=== PATIENT | male | born 1960 | race Asian ===

== ENCOUNTER 2019-12-27 13:02 | Emergency (ER) | payer OTHER ==
[~2019-12-27] VITALS: Ht 175.3 cm; Wt 54.4 kg
[~2019-12-27 13:02] MED LIST: FUROSEMIDE20 M1 ORAL
[2019-12-27 13:05] VITALS: BP 159/109
--- NOTE | 2019-12-27 13:10 | NUR ---
ED Nurse Note: Patient BIBA from home d/t shortness of breath. Per EMS, patient's neighbor called 911 after seeing patient in car trying to catch his breath. Patient was 78% O2 sat in the field on RA. Patient 98% after being placed on non-rebreather at 15L. Patient currently satting 100% on 4L NC. Patient arousable to pain, makes eye contact, but does not speak. Patient on the monitor tech. IV site in right AC 18 g, blood collected and sent to lab.
[2019-12-27 13:32] LABS: BASOPHILS % (AUTO) 0.7 % (0.0-2.0); EOSINOPHILS % (AUTO) 0.6 % (0.0-3.0); HEMATOCRIT 43.1 % (42.0-52.0); HEMOGLOBIN 12.9 G/DL (14.2-18.0); LYMPHOCYTES % (AUTO) 14.3 % (20.0-45.0); MEAN CORPUSCULAR VOLUME 106 FL (80-99); MONOCYTES % (AUTO) 4.8 % (1.0-10.0); NEUTROPHILS % (AUTO) 79.7 % (45.0-75.0); PLATELET COUNT 140 K/UL (150-450); RED BLOOD COUNT 4.09 M/UL (4.70-6.10); RED CELL DISTRIBUTION WIDTH 13.4 % (11.6-14.8)
[2019-12-27 13:48] LABS: BLOOD UREA NITROGEN 12 mg/dL (7-18); CALCIUM 8.7 MG/DL (8.5-10.1); CHLORIDE 94 MMOL/L (98-107); CREATININE 0.6 MG/DL (0.55-1.30); POTASSIUM 3.9 MMOL/L (3.5-5.1); SODIUM 142 MMOL/L (136-145)
[2019-12-27 14:01] LABS: ALANINE AMINOTRANSFERASE 16 U/L (12-78); ALBUMIN 4.4 G/DL (3.4-5.0); ALBUMIN/GLOBULIN RATIO 1.3 (1.0-2.7); ALKALINE PHOSPHATASE 57 U/L (46-116); ASPARTATE AMINO TRANSFERASE 18 U/L (15-37); BILIRUBIN,TOTAL 0.7 MG/DL (0.2-1.0); CREATINE KINASE 42 U/L (26-308)
[2019-12-27 14:12] LABS: CARBON DIOXIDE > 45 MMOL/L (21-32)
--- NOTE | 2019-12-27 14:33 | Emergency Room Report ---
History of Present Illness General Chief Complaint: Upper Respiratory Illness [facility]: [facility] Present Illness HPI This patient is brought in by EMS. EMS report hypoxemia on their arrival with oxygen saturations in the 70s. The oxygen saturation came up into the 90s on a nonrebreather mask. The patient reports a history of COPD. He states he has had a few days of worsening shortness of breath. He denies cough or congestion. He denies chest pain. He denies fever or chills. He denies nausea or vomiting. He states that this feels similar to his previous COPD exacerbations. He has no other complaints. [facility] Allergies: Coded Allergies: UNABLE TO ASSESS (Unverified , 12/27/19) COVID-19 Screening Contact w/high risk pt: No Experienced COVID-19 symptoms?: Yes COVID-19 Testing performed ANNUAL GIVING DIRECTOR: No - UNK [facility] Patient History Past Medical History: see triage record, HTN, COPD Social History: Denies: smoking - Hx of Tobacco use, alcohol use, drug use Reviewed Nursing Documentation: PMH: Agreed; PSxH: Agreed ([facility]) Nursing Documentation-PMH Hx COPD: Yes ([facility]) Review of Systems All Other Systems: negative except mentioned in HPI ([facility]) Physical Exam Vital Signs Date Time Temp Pulse Resp B/P (MAP) Pulse Ox O2 Delivery O2 Flow Rate FiO2 12/27/19 12:46 98.4 90 14 159/109 (126) 98 Non-Rebreather 15.0 Sp02 EP Interpretation: reviewed, abnormal General Appearance: no apparent distress, alert, GCS 15, non-toxic Head: normocephalic, atraumatic Eyes: bilateral eye normal inspection, bilateral eye PERRL ENT: hearing grossly normal, normal pharynx, no angioedema, normal voice Neck: full range of motion, supple/symm/no masses Respiratory: chest non-tender, accessory muscle use, wheezing, expiration Cardiovascular #1: regular rate, rhythm, no edema Gastrointestinal: normal bowel sounds, non tender, soft, non-distended, no guarding, no rebound Rectal: deferred Musculoskeletal: normal inspection, back normal, normal range of motion, non- tender Neurologic: alert, motor strength/tone normal, oriented x3, sensory intact, responsive, speech normal Psychiatric: judgement/insight normal, memory normal, mood/affect normal, no suicidal/homicidal ideation Skin: no rash, normal color (Christa Thakur DO) Procedures Critical Care Time Critical Care Time Critical care is made on this patient due to presentation with shortness of breath and hypoxia with COPD exacerbation requiring my acute intervention. Critical care time is approximately 35 minutes and excludes procedures (Sagar Morrow M.D.) Medical Decision Making Diagnostic Impression: Primary Impression: COPD exacerbation ER Course This patient presented with a severe COPD exacerbation. I initially evaluated this patient. The patient was given albuterol and Atrovent nebulizer treatments in addition to oral prednisone. Patient was maintaining oxygen saturations, although, this patient may need BiPAP if he does not turn around. The patient's rapid COVID-19 test was negative. I was only able to start the care on this patient as this patient was turned over to Dr. Morrow. Chest x- ray was clear. Patient was wheezing on lung exam. Anticipate admission for COPD exacerbation. This patient was evaluated in the context of the global COVID-19 pandemic, which necessitated consideration that the patient might be at risk for infection with the [id number] virus that causes COVID-19. Institutional protocols and algorithms that pertain to the evaluation of patients at risk for COVID-19 and the state of rapid change based on information released by multiple regulatory bodies including the CDC and federal and state organizations. These policies and algorithms were followed during the patient' s care in the ED. Laboratory Tests Test 12/27/19 13:05 White Blood Count 6.0 K/UL (4.8-10.8) Red Blood Count 4.09 M/UL (4.70-6.10) L Hemoglobin 12.9 G/DL (14.2-18.0) L Hematocrit 43.1 % (42.0-52.0) Mean Corpuscular Volume 106 FL (80-99) H Mean Corpuscular Hemoglobin 31.4 PG (27.0-31.0) H Mean Corpuscular Hemoglobin Concent 29.8 G/DL (32.0-36.0) L Red Cell Distribution Width 13.4 % (11.6-14.8) Platelet Count 140 K/UL (150-450) L Mean Platelet Volume 6.3 FL (6.5-10.1) L Neutrophils (%) (Auto) 79.7 % (45.0-75.0) H Lymphocytes (%) (Auto) 14.3 % (20.0-45.0) L Monocytes (%) (Auto) 4.8 % (1.0-10.0) Eosinophils (%) (Auto) 0.6 % (0.0-3.0) Basophils (%) (Auto) 0.7 % (0.0-2.0) Sodium Level 142 MMOL/L (136-145) Potassium Level 3.9 MMOL/L (3.5-5.1) Chloride Level 94 MMOL/L (98-107) L Carbon Dioxide Level > 45 MMOL/L (21-32) *H Blood Urea Nitrogen 12 mg/dL (7-18) Creatinine 0.6 MG/DL (0.55-1.30) Estimated Glomerular Filtration Rate > 60 mL/min (>60) Glucose Level 187 MG/DL (74-106) H Lactic Acid Level 0.80 mmol/L (0.4-2.0) Calcium Level 8.7 MG/DL (8.5-10.1) Total Bilirubin 0.7 MG/DL (0.2-1.0) Aspartate Amino Transferase (AST) 18 U/L (15-37) Alanine Aminotransferase (ALT) 16 U/L (12-78) Alkaline Phosphatase 57 U/L (46-116) Total Creatine Kinase 42 U/L (26-308) Creatine Kinase MB 2.0 NG/ML (0.0-3.6) Creatine Kinase MB Relative Index 4.7 Troponin I 0.000 ng/mL (0.000-0.056) Total Protein 7.8 G/DL (6.4-8.2) Albumin 4.4 G/DL (3.4-5.0) Globulin 3.4 g/dL Albumin/Globulin Ratio 1.3 (1.0-2.7) Microbiology Date/Time Source Procedure Growth Status 12/27/19 13:25 Nasopharynx SARS-CoV-2 RdRp Gene Assay - Final Complete (Christa Thakur DO) ER Course 59-year-old male signed out to me by previous physician for COPD exacerbation. Patient presented from home hypoxic. Patient was reported to me to have wheezing. Rapid COVID test was negative. Patient received breathing treatments but seemed mildly altered so blood gas was ordered and CO2 elevated to 170. At that time positive pressure ventilation was ordered with BiPAP. Even IV steroids. Do suspect COPD exacerbation. Due to insurance patient was requested to be transferred to outside facility, [facility] under Dr. billings. I did explain to Dr. Santiago that patient will require BiPAP during transport which was arranged. Patient transferred to outside facility. (Sagar Morrow M.D.) ER Course Addendum: Blood culture positive I was brought Blood culture results from 12/27/2019. I have reviewed the medical record and patient was transferred to an outside hospital for management of COPD/pneumonia. Preliminary blood culture shows gram-positive rods I did call the demographics contact information but via voice mailbox is full so I was not able to leave a message. We will try x3. (Evelia Ridley D.O.) EKG Diagnostic Results Rate: normal Rhythm: NSR ST Segments: no acute changes (Christa Thakur DO) Rhythm Strip Diag. Results EP Interpretation: yes Rate: 90's Rhythm: NSR, no PVC's, no ectopy (Christa Thakur DO) Chest X-Ray Diagnostic Results Chest X-Ray Diagnostic Results : Chest X-Ray Ordered: Yes # of Views/Limited/Complete: 1 View Indication: Shortness of Breath EP Interpretation: Yes Interpretation: no consolidation, no effusion, no pneumothorax, no acute cardiopulmonary disease, other - Hyperinflation Impression: No acute disease Electronically Signed by: Christa Thakur DO (Christa Thakur DO) Last Vital Signs Date Time Temp Pulse Resp B/P (MAP) Pulse Ox O2 Delivery O2 Flow Rate FiO2 12/27/19 13:05 90 14 Non-Rebreather 15.0 12/27/19 12:46 98.4 159/109 (126) 98 (Christa Thakur DO) Disposition: ADMITTED INPATIENT Condition: Serious Referrals: NOT CHOSEN IPA/,REFERRING (PCP) Christa Thakur DO Dec 27, 2019 14:33 Sagar Morrow M.D. Dec 27, 2019 18:07 Evelia Ridley D.O. Dec 30, 2019 08:51
[2019-12-27] MEDS ORDERED: Ipratropium 0.02% Inh Soln 2.5ml UD HHN ONE (14:45)
[2019-12-27] MEDS ORDERED: Ipratropium 0.02% Inh Soln 2.5ml UD ONE (14:47)
[2019-12-27] MEDS: Albuterol ud Inhalation HHN SCH ×2 (14:56→14:58)
[2019-12-27 15:00] VITALS: BP 154/84
[2019-12-27] MEDS ORDERED: Solu-MEDROL 125mg Inj IVP ONE (15:30)
[2019-12-27 15:44] VITALS: BP 181/110
--- NOTE | 2019-12-27 15:44 | NUR ---
ED Nurse Note: Patient BP 181/110, Dr. Morrow notified.
--- NOTE | 2019-12-27 15:54 | Diagnostic Imaging Report ---
Indication: Shortness of breath Technique: One view of the chest Comparison: none Findings: Lungs are hyperinflated. The heart size is normal. The aorta is tortuous and ectatic Impression: Hyperinflation, likely COPD. No acute process.
[2019-12-27 16:30] VITALS: BP 141/76
--- NOTE | 2019-12-27 16:45 | NUR ---
ED Nurse Note: Patient BP trending down, patient in no acute distress. Hydralazine held
--- NOTE | 2019-12-27 17:30 | NUR ---
ED Nurse Note: Patient tolerating BiPAP well, breathing even and unlabored, no s/s of respiratory distress.
[2019-12-27 18:30] VITALS: BP 121/76
--- NOTE | 2019-12-27 18:30 | NUR ---
ED Nurse Note: Report given to Ashely MCDUFFIE with [facility]. Report given to Abimael MCDUFFIE at [facility], patient accepted at [facility]. Patient VSS.
== END 2019-12-27 18:30 | disposition other institution (70) ==
LOC: EDBD 13:02 → EMR 14:04 → EDBEDREQSVC 16:21 → EMR 18:30
DX: J44.1 Chronic obstructive pulmonary disease with (acute) exacerbation (principal)
CPT/HCPCS: 36415; 36600; 71045; 80053; 82550; 82553; 82803; 83605; 84484; 85025; 87040; 93005; 94640; 96374; J2930; U0002; Z7502; 99291

== ENCOUNTER 2020-02-25 15:46 | Inpatient (IN) | payer OTHER ==
[~2020-02-25] VITALS: Ht 177.8 cm; Wt 57.1 kg
[2020-02-25 15:52] VITALS: BP 153/88
--- NOTE | 2020-02-25 15:52 | NUR ---
ED Nurse Note: Pt arrived to ED with RA 26 from home due to SOB pt has history of COPD. pt is 98% on 3 L nasal cannula. pt desaturated to 89-92% per ems off oxygen.
[2020-02-25 16:28] LABS: BASOPHILS % (AUTO) 0.6 % (0.0-2.0); EOSINOPHILS % (AUTO) 0.9 % (0.0-3.0); HEMATOCRIT 35.9 % (42.0-52.0); HEMOGLOBIN 11.5 G/DL (14.2-18.0); LYMPHOCYTES % (AUTO) 8.9 % (20.0-45.0); MEAN CORPUSCULAR VOLUME 101 FL (80-99); MONOCYTES % (AUTO) 6.7 % (1.0-10.0); NEUTROPHILS % (AUTO) 82.9 % (45.0-75.0); PLATELET COUNT 172 K/UL (150-450); RED BLOOD COUNT 3.56 M/UL (4.70-6.10); RED CELL DISTRIBUTION WIDTH 13.8 % (11.6-14.8); WHITE BLOOD COUNT 8.7 K/UL (4.8-10.8)
[2020-02-25] MEDS ORDERED: Solu-MEDROL 125mg Inj IVP ONE (16:30)
[2020-02-25] MEDS ORDERED: Albuterol/Ipratropium 3ml neb HHN ONE ×2 (16:30→17:15)
--- NOTE | 2020-02-25 16:33 | Diagnostic Imaging Report ---
Indication: Shortness of breath Technique: One view of the chest Comparison: 12/27/2019 Findings: Mild hyperinflation again seen. There is no definite focal airspace consolidation. No pleural effusion or pneumothorax. Heart is enlarged but stable in size compared to the prior exam. Aorta is ectatic and tortuous, also similar compared to the prior exam. Osseous structures demonstrate no acute abnormality. Impression: Nonspecific hyperinflation. Question COPD. No acute infiltrate.
[2020-02-25 16:47] LABS: BLOOD UREA NITROGEN 7 mg/dL (7-18); CALCIUM 9.5 MG/DL (8.5-10.1); CHLORIDE 97 MMOL/L (98-107); CREATININE 0.5 MG/DL (0.55-1.30); POTASSIUM 3.3 MMOL/L (3.5-5.1); SODIUM 142 MMOL/L (136-145)
[2020-02-25] MEDS ORDERED: Solu-MEDROL 125mg Inj ONE (16:51)
--- NOTE | 2020-02-25 16:52 | NUR ---
ED Nurse Note: RT at bedside
[2020-02-25 16:56] LABS: APPEARANCE,URINE CLEAR; BILIRUBIN, URINE NEGATIVE (NEGATIVE); COLOR,URINE YELLOW; GLUCOSE, URINE (UA) NEGATIVE (NEGATIVE); KETONES,URINE NEGATIVE (NEGATIVE); LEUKOCYTE ESTERASE ,URINE 1+ (NEGATIVE); NITRITE,URINE NEGATIVE (NEGATIVE); PH,URINE 8 (4.5-8.0); PROTEIN,URINE 1+ (NEGATIVE); UROBILINOGEN,URINE 1 MG/DL (0.0-1.0)
[2020-02-25 17:01] LABS: ALANINE AMINOTRANSFERASE 19 U/L (12-78); ALBUMIN 3.9 G/DL (3.4-5.0); ALBUMIN/GLOBULIN RATIO 1.2 (1.0-2.7); ALKALINE PHOSPHATASE 55 U/L (46-116); ASPARTATE AMINO TRANSFERASE 21 U/L (15-37); BILIRUBIN,TOTAL 0.7 MG/DL (0.2-1.0); CKMB 2.1 NG/ML (0.0-3.6); CREATINE KINASE 158 U/L (26-308); PHOSPHORUS 3.5 MG/DL (2.5-4.9)
--- NOTE | 2020-02-25 17:14 | NUR ---
ED Nurse Note: Pt denies CP, pt appears to be working harder when breathing. called RT to inform them that another breathing treatment is due
--- NOTE | 2020-02-25 17:15 | Emergency Room Report ---
History of Present Illness General Chief Complaint: Dyspnea/Respdistress Source: Patient, EMS Present Illness HPI Patient is a 59-year-old male who presents after increased difficulty with breathing. Previous history of COPD. Reports having some prior heart condition in the past. Denies any chest discomfort.Patient did have worsening difficulty breathing over the past 1 day. Had previous history of COPD.Patient denies any recent fever. Reportedly had have been having decreased sense of smell and taste. Allergies: Coded Allergies: No Known Allergies (Unverified , 02/25/20) UNABLE TO ASSESS (Unverified , 12/27/19) COVID-19 Screening Contact w/high risk pt: No Experienced COVID-19 symptoms?: Yes COVID-19 Testing performed ALTERATION SPECIALIST: No Patient History Past Medical History: see triage record Reviewed Nursing Documentation: PMH: Agreed; PSxH: Agreed Nursing Documentation-PMH Past Medical History: No History, Except For Hx COPD: Yes Review of Systems All Other Systems: negative except mentioned in HPI Physical Exam Vital Signs Date Time Temp Pulse Resp B/P (MAP) Pulse Ox O2 Delivery O2 Flow Rate FiO2 02/25/20 15:43 98.4 102 20 172/115 (134) 97 Room Air 02/25/20 15:52 3.0 02/25/20 16:47 28 Sp02 EP Interpretation: reviewed, normal General Appearance: normal inspection, well appearing, alert Head: atraumatic ENT: normal ENT inspection, hearing grossly normal, normal voice Neck: normal inspection, full range of motion, supple, no bony tend Respiratory: normal inspection, no retraction, decreased breath sounds, wheezing Cardiovascular #1: regular rate, rhythm, no edema Gastrointestinal: normal inspection, normal bowel sounds, non tender, soft, no guarding, no hernia Genitourinary: no CVA tenderness Musculoskeletal: normal inspection, back normal, normal range of motion Neurologic: alert, motor strength/tone normal, oriented x3, responsive, speech normal, normal inspection Psychiatric: normal inspection, judgement/insight normal, mood/affect normal Skin: no rash, other - Muscle atrophy Medical Decision Making Diagnostic Impression: Primary Impression: COPD exacerbation Additional Impression: CO2 retention ER Course Patient presented for shortness of breath. Differential diagnosis include was not limited to pneumonia, myocardial infarction, coronavirus infection, anemia among others. Because of complexity of patient's case laboratory tests and imaging studies were ordered. EKG interpreted by me showed normal sinus rhythm with a rate of [address] or T wave changes. Patient's coronavirus testing was negative.Patient's laboratory testing was notable for negative troponin.X-ray 1 view read by radiology showed nonspecific hyperinflation without evident infiltrate, see radiology report for full details. Patient initially refused BIPAP. Had some improvement in CO2 after bipap initiated. Repeat CO2 and pH are improved on BiPAP.Dr. Rizwan Patel was contacted for inpatie nt management. Labs Test 02/25/20 15:45 02/25/20 16:45 White Blood Count 8.7 K/UL (4.8-10.8) Red Blood Count 3.56 M/UL (4.70-6.10) Hemoglobin 11.5 G/DL (14.2-18.0) Hematocrit 35.9 % (42.0-52.0) Mean Corpuscular Volume 101 FL (80-99) Mean Corpuscular Hemoglobin 32.3 PG (27.0-31.0) Mean Corpuscular Hemoglobin Concent 32.0 G/DL (32.0-36.0) Red Cell Distribution Width 13.8 % (11.6-14.8) Platelet Count 172 K/UL (150-450) Mean Platelet Volume 6.3 FL (6.5-10.1) Neutrophils (%) (Auto) 82.9 % (45.0-75.0) Lymphocytes (%) (Auto) 8.9 % (20.0-45.0) Monocytes (%) (Auto) 6.7 % (1.0-10.0) Eosinophils (%) (Auto) 0.9 % (0.0-3.0) Basophils (%) (Auto) 0.6 % (0.0-2.0) Prothrombin Time 11.4 SEC (9.30-11.50) Prothromb Time International Ratio 1.0 (0.9-1.1) Activated Partial Thromboplast Time 30 SEC (23-33) Sodium Level 142 MMOL/L (136-145) Potassium Level 3.3 MMOL/L (3.5-5.1) Chloride Level 97 MMOL/L (98-107) Blood Urea Nitrogen 7 mg/dL (7-18) Creatinine 0.5 MG/DL (0.55-1.30) Estimat Glomerular Filtration Rate > 60 mL/min (>60) Glucose Level 139 MG/DL (74-106) Calcium Level 9.5 MG/DL (8.5-10.1) Phosphorus Level 3.5 MG/DL (2.5-4.9) Magnesium Level 1.9 MG/DL (1.8-2.4) Total Bilirubin 0.7 MG/DL (0.2-1.0) Aspartate Amino Transf (AST/SGOT) 21 U/L (15-37) Alanine Aminotransferase (ALT/SGPT) 19 U/L (12-78) Alkaline Phosphatase 55 U/L (46-116) Total Creatine Kinase 158 U/L (26-308) Creatine Kinase MB 2.1 NG/ML (0.0-3.6) Creatine Kinase MB Relative Index 1.3 Troponin I 0.000 ng/mL (0.000-0.056) Pro-B-Type Natriuretic Peptide 109 pg/mL (0-125) Total Protein 7.1 G/DL (6.4-8.2) Albumin 3.9 G/DL (3.4-5.0) Globulin 3.2 g/dL Albumin/Globulin Ratio 1.2 (1.0-2.7) Lipase 77 U/L (73-393) Urine Color Yellow Urine Appearance Clear Urine pH 8 (4.5-8.0) Urine Specific [place] 1.010 (1.005-1.035) Urine Protein 1+ (NEGATIVE) Urine Glucose (UA) Negative (NEGATIVE) Urine Ketones Negative (NEGATIVE) Urine Blood 1+ (NEGATIVE) Urine Nitrite Negative (NEGATIVE) Urine Bilirubin Negative (NEGATIVE) Urine Urobilinogen 1 MG/DL (0.0-1.0) Urine Leukocyte Esterase 1+ (NEGATIVE) EKG Diagnostic Results Rate: normal - 94 Rhythm: NSR - 94 ST Segments: no acute changes Rhythm Strip Diag. Results EP Interpretation: yes Rhythm: NSR, no PVC's, no ectopy Last Vital Signs Date Time Temp Pulse Resp B/P (MAP) Pulse Ox O2 Delivery O2 Flow Rate FiO2 02/25/20 16:47 100 22 100 2.0 28 98 23 100 02/25/20 15:52 Room Air 02/25/20 15:52 98.4 153/88 Status: unchanged Disposition: ADMITTED INPATIENT Condition: Stable Referrals: [facility],REFERRING (PCP) Carrington Kerns MD Feb 25, 2020 17:15
--- NOTE | 2020-02-25 17:18 | NUR ---
ED Nurse Note: RT at bedside placing BiPAP
[2020-02-25 17:21] LABS: CARBON DIOXIDE 44 MMOL/L (21-32)
--- NOTE | 2020-02-25 17:30 | NUR ---
ED Nurse Note: Pt refusing BiPAP, pt states "its too much". ERMD informed; per ermd place pt on nasal cannula and collect abg
--- NOTE | 2020-02-25 17:35 | NUR ---
RESPIRATORY NOTE: placed pt on Bipap. pt refusing. ER MD notified.
[2020-02-25 17:42] VITALS: BP 173/101
--- NOTE | 2020-02-25 17:57 | NUR ---
ED Nurse Note: Pt is restless and appears diaphoretic. pt was attempting to get out of bed, pt was verbally oriented.
[2020-02-25] MEDS ORDERED: Aspirin Baby 81mg ORAL ONE (18:15)
--- NOTE | 2020-02-25 18:55 | NUR ---
ED Nurse Note: ABG collected per RT
--- NOTE | 2020-02-25 19:08 | NUR ---
HAND-OFF: Report given to Scout Orozco.
--- NOTE | 2020-02-25 19:14 | NUR ---
ED Nurse Note: pt received from FROY Torres. 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 safety precautions are in place. will cont to monitor pt
[2020-02-25 19:19] VITALS: BP 153/83
--- NOTE | 2020-02-25 20:08 | NUR ---
ED Nurse Note: pt placed back onto bi-pap machine by RT per ERMD orders. pt tolerating well, not pulling at mask or tubing. pt appears to be asleep but arousable to his name and touch, his responses to questions are delayed but coherent. pt satting at around 95% on bi-pap
--- NOTE | 2020-02-25 21:35 | NUR ---
ED Nurse Note: RT at pt bedside to draw second ABG
--- NOTE | 2020-02-25 22:48 | NUR ---
ED Nurse Note: called to give report but admitting RN and floor supercharger mechanic are unavailable to receive report at this time, asked to call back in 10 minutes
--- NOTE | 2020-02-25 22:56 | NUR ---
ED Nurse Note: report given to FROY Copeland
--- NOTE | 2020-02-25 23:00 | NUR ---
NURSE NOTES: Received patient report from FROY Orozco. Patient arrived from ER without incident. He shows no signs of distress or pain at the time. Patient is AO x3 Mongolian speaking. Patient is on Bi Pap 05/17 on 40 % FIo2. He is saturating at 100%. IV is intact and patent. There are no signs of erythema, infiltration, or bleeding at the time. Belongings checked. Bed is in the lowest position, call light is within reach, side rails up x3. Will continue to monitor.
[2020-02-26] VITALS: BP 134/84
[2020-02-26] MEDS ORDERED: Albuterol/Ipratropium 3ml neb HHN PRN (01:15)
[2020-02-26 04:00] VITALS: BP 114/74
--- NOTE | 2020-02-26 04:33 | NUR ---
NURSE NOTES: Found $674 dollars in patients pants. Also found cigarettes and coil repair technician. Asked patient if he wants us to keep it in safe and he agreed. Will contact Quality Lead Irish and take it down stairs.
--- NOTE | 2020-02-26 06:22 | NUR ---
NURSE NOTES: Pc Technician FROY Coburn and security intelligence analyst came together and counted the money in front of patient. There are 5 x100, 8x 20, 1x 10, and 4x 1 dollar bills. Patient also had a box of cigarettes with 4 cigarettes in it and a blue shirt trimmer. Receipt stayed with patient and pink copy in patients chart. Belongings went to safe.
--- NOTE | 2020-02-26 07:09 | NUR ---
NURSE HAND-OFF REPORT: Important Events on Shift:[Patent money sent to safe] Patient Status: [Full code] Diet: [Regular] Pending Orders: [NA] Pending Results/Labs:[NA] Pending MD notification:[NA] Latest Vital Signs: Temperature 96.8 , Pulse 75 , B/P 114 /74 , Respiratory Rate 20 , O2 SAT 99 , Bi-pap, O2 Flow Rate 10.0 . Vital Sign Comment: [NA] EKG Rhythm: Sinus Rhythm Rhythm change?: N MD Notified?: - MD Response: Latest [place] Fall Score: 70 Fall Risk: High Risk Safety Measures: Call light Within Reach, Bed Alarm Zone 2, Side Rails Side Rails x2, Bed position Low and Locked. Fall Precautions: Yellow Socks Patient Fall Education Report given to [FROY Moore and FROY Hay].
--- NOTE | 2020-02-26 07:27 | NUR ---
NURSE NOTES: Pt is on bed comfortable, on Bipap with setting 40% FiO2, 12/5. No grimacing noted. IV on L wrist G18 SL. Bed on low position, bed alarm on, call light within reach, Will continue to monitor pt.
[2020-02-26 08:00] VITALS: BP 144/98
--- NOTE | 2020-02-26 08:42 | Cardiac Electrophysiology PN ---
Subjective Subjective [id number] Objective Last 24 Hour Vital Signs Date Time Temp Pulse Resp B/P (MAP) Pulse Ox O2 Delivery O2 Flow Rate FiO2 02/26/20 07:20 85 19 100 30 02/26/20 04:00 Bi-pap 02/26/20 04:00 75 02/26/20 04:00 40 02/26/20 04:00 96.8 74 20 114/74 (87) 99 02/26/20 03:14 73 22 98 40 02/26/20 00:00 Bi-pap 02/26/20 00:00 40 02/26/20 00:00 78 02/26/20 00:00 98.1 75 22 134/84 (101) 100 02/25/20 23:46 79 17 98 40 02/25/20 23:12 Bi-Pap 02/25/20 23:08 98.5 83 10 143/80 95 Bi-pap 10.0 30 02/25/20 21:17 3.0 30 02/25/20 20:13 100 10 95 Bi-pap 02/25/20 19:54 103 17 99 Nasal Cannula 3.0 30 02/25/20 19:19 100 23 153/83 100 Nasal Cannula 3.0 02/25/20 17:42 98.1 110 23 173/101 100 Nasal Cannula 3.0 32 02/25/20 17:33 109 20 100 Nasal Cannula 3.0 32 99 20 97 02/25/20 17:18 40 02/25/20 16:47 100 22 100 2.0 28 98 23 100 02/25/20 15:52 102 20 Room Air 02/25/20 15:52 98.4 89 20 153/88 98 Nasal Cannula 3.0 02/25/20 15:43 98.4 102 20 172/115 (134) 97 Room Air Intake and Output 02/25/20 02/26/20 19:00 07:00 Output Total 0 ml 1200 ml Balance 0 ml -1200 ml Output Urine Total 0 ml 1200 ml Laboratory Tests Test 02/25/20 15:45 02/25/20 16:45 02/25/20 18:51 02/25/20 21:28 White Blood Count 8.7 K/UL (4.8-10.8) Red Blood Count 3.56 M/UL (4.70-6.10) L Hemoglobin 11.5 G/DL (14.2-18.0) L Hematocrit 35.9 % (42.0-52.0) L Mean Corpuscular Volume 101 FL (80-99) H Mean Corpuscular Hemoglobin 32.3 PG (27.0-31.0) H Mean Corpuscular Hemoglobin Concent 32.0 G/DL (32.0-36.0) Red Cell Distribution Width 13.8 % (11.6-14.8) Platelet Count 172 K/UL (150-450) Mean Platelet Volume 6.3 FL (6.5-10.1) L Neutrophils (%) (Auto) 82.9 % (45.0-75.0) H Lymphocytes (%) (Auto) 8.9 % (20.0-45.0) L Monocytes (%) (Auto) 6.7 % (1.0-10.0) Eosinophils (%) (Auto) 0.9 % (0.0-3.0) Basophils (%) (Auto) 0.6 % (0.0-2.0) Prothrombin Time 11.4 SEC (9.30-11.50) Prothromb Time International Ratio 1.0 (0.9-1.1) Activated Partial Thromboplast Time 30 SEC (23-33) Sodium Level 142 MMOL/L (136-145) Potassium Level 3.3 MMOL/L (3.5-5.1) L Chloride Level 97 MMOL/L (98-107) L Carbon Dioxide Level 44 MMOL/L (21-32) *H Blood Urea Nitrogen 7 mg/dL (7-18) Creatinine 0.5 MG/DL (0.55-1.30) L Estimat Glomerular Filtration Rate > 60 mL/min (>60) Glucose Level 139 MG/DL (74-106) H Lactic Acid Level 1.00 mmol/L (0.4-2.0) Calcium Level 9.5 MG/DL (8.5-10.1) Phosphorus Level 3.5 MG/DL (2.5-4.9) Magnesium Level 1.9 MG/DL (1.8-2.4) Total Bilirubin 0.7 MG/DL (0.2-1.0) Aspartate Amino Transf (AST/SGOT) 21 U/L (15-37) Alanine Aminotransferase (ALT/SGPT) 19 U/L (12-78) Alkaline Phosphatase 55 U/L (46-116) Total Creatine Kinase 158 U/L (26-308) Creatine Kinase MB 2.1 NG/ML (0.0-3.6) Creatine Kinase MB Relative Index 1.3 Troponin I 0.000 ng/mL (0.000-0.056) Pro-B-Type Natriuretic Peptide 109 pg/mL (0-125) Total Protein 7.1 G/DL (6.4-8.2) Albumin 3.9 G/DL (3.4-5.0) Globulin 3.2 g/dL Albumin/Globulin Ratio 1.2 (1.0-2.7) Lipase 77 U/L (73-393) Urine Color Yellow Urine Appearance Clear Urine pH 8 (4.5-8.0) Urine Specific [place] 1.010 (1.005-1.035) Urine Protein 1+ (NEGATIVE) H Urine Glucose (UA) Negative (NEGATIVE) Urine Ketones Negative (NEGATIVE) Urine Blood 1+ (NEGATIVE) H Urine Nitrite Negative (NEGATIVE) Urine Bilirubin Negative (NEGATIVE) Urine Urobilinogen 1 MG/DL (0.0-1.0) H Urine Leukocyte Esterase 1+ (NEGATIVE) H Urine RBC 2-4 /HPF (0 - 0) H Urine WBC 2-4 /HPF (0 - 0) Urine Squamous Epithelial Cells Occasional /LPF Urine Amorphous Sediment Few /LPF (NONE) H Urine Bacteria Few /HPF (NONE) Arterial Blood pH 7.187 (7.350-7.450) 7.333 (7.350-7.450) Arterial Blood Partial Pressure CO2 125.1 mmHg (35.0-45.0) *H 88.7 mmHg (35.0-45.0) *H Arterial Blood Partial Pressure O2 68.3 mmHg (75.0-100.0) L 51.8 mmHg (75.0-100.0) L Arterial Blood HCO3 46.4 mmol/L (22.0-26.0) *H 46.0 mmol/L (22.0-26.0) *H Arterial Blood Oxygen Saturation 88.3 % (95-100) *L 86.2 % (95-100) *L Arterial Blood Base Excess 13.3 (-2-2) *H 16.3 (-2-2) *H Onofre Test Positive Positive Microbiology Date/Time Source Procedure Growth Status 02/25/20 15:45 Nasopharynx SARS-CoV-2 RdRp Gene Assay - Final Complete Monster Mcknight MD Feb 26, 2020 08:42
[2020-02-26] MEDS: Solu-MEDROL 125mg Inj IVP SCH (09:52)
[2020-02-26] MEDS: cefTRIAXone 1 GM in D5W 55 ML IVPB SCH (09:52)
[2020-02-26] MEDS: Aspirin Baby 81mg ORAL SCH (09:53)
[2020-02-26 12:00] VITALS: BP 146/89
--- NOTE | 2020-02-26 12:30 | NUR ---
NURSE NOTES: Pt tried to eat but O2 sat dropped to 91%. VS remained stable.
--- NOTE | 2020-02-26 13:56 | Cardiology Report ---
APPROVED REPORT EXAM: Two-dimensional and M-mode echocardiogram with Doppler and color Doppler. INDICATION S.O.B M-Mode DIMENSIONS IVSd1.3 (0.7-1.1cm)Left Atrium (MM)1.4 (1.6-4.0cm) LVDd4.3 (3.5-5.6cm)Aortic Root4.6 (2.0-3.7cm) PWd0.9 (0.7-1.1cm)Aortic Cusp Exc.3.0 (1.5-2.0cm) IVSs1.4 cm LVDs3.1 (2.5-4.0cm) PWs1.2 cm <Conclusion> Technically difficult study due to poor acoustical windows,all images obtained from subcostal. Normal left ventricular chamber size, systolic function and wall motion. Left ventricular ejection fraction estimated to be 55-60 %. No evidence of left ventricular hypertrophy. No evidence of pericardial fat or effusion. RV APPEARS ENLARGED All other cardiac chamber sizes are within normal limits. Calcification of aortic valve with adequate cusp excursion, aortic root dialation. Thickened mitral valve leaflets with normal excursion. Mitral annulus and aortic root calcification. Pulmonic valve not well visualized. Normal tricuspid valve structure. IVC dilated at 2.3 cm without physiologic collapse suggestive of increased RA pressure,RAP estimated 20mmHg. A color flow and spectral Doppler study was performed and revealed: Mild aortic insufficiency. Mild mitral regurgitation. Mitral diastolic velocities suggest reduced left ventricular relaxation c/w mild LV diastolic dysfunction (Grade I ). Moderate tricuspid regurgitation. Tricuspid systolic velocities suggests peak right ventricular systolic pressure of 63 mmHg, consistent with severe pulmonary hypertension. Trace pulmonic regurgitation .
--- NOTE | 2020-02-26 14:19 | Cardiology Report ---
APPROVED REPORT EKG Measurement Heart [id number] <Conclusion> Normal sinus rhythm Minimal voltage criteria for LVH, may be normal variant Borderline ECG
--- NOTE | 2020-02-26 15:44 | Consultation ---
DATE OF CONSULTATION: 02/26/2020 CARDIOLOGY CONSULTATION CONSULTING PHYSICIAN: Monster Mcknight MD REFERRING PHYSICIAN: Abimael Patel MD REASON FOR CONSULTATION: Shortness of breath. HISTORY OF PRESENT ILLNESS: The patient is a 59-year-old gentleman with history of hypertension, COPD, and some sort of heart condition in the past that he cannot give the details of which, presented to the emergency room for increasing shortness of breath for one day. The patient was also felt to have decreased sense of smelling and taste. The patient was admitted and a Cardiology consultation was requested for further evaluation and management. REVIEW OF SYSTEMS: Negative other than what is mentioned in the history of present illness. PAST MEDICAL HISTORY: As mentioned above. FAMILY HISTORY: Noncontributory. SOCIAL HISTORY: He lives at home. Does not smoke or drink alcohol. PHYSICAL EXAMINATION: VITAL SIGNS: Blood pressure of 114/74, pulse 75, respirations 18, and temperature 96.8. HEAD AND NECK: Shows no JVD. LUNGS: Coarse rhonchi. CARDIOVASCULAR: Regular S1 and S2 with no gallop or murmur. ABDOMEN: Soft. EXTREMITIES: No pitting edema. LABORATORY AND DIAGNOSTIC DATA: His labs show white count 8.7, hemoglobin 11.5, hematocrit 36, and platelet count is 172,000. Sodium 142, potassium 3.3, BUN of 7, creatinine 0.5, glucose of 139. Troponin is negative. EKG shows sinus rhythm with LVH criteria and nonspecific ST-T wave abnormality. ASSESSMENT AND PLAN: 1. Shortness of breath, likely due to the patient's severe COPD as bicarb is 44. First troponin is negative. EKG is nonischemic. I will get an echocardiogram and completely rule out NH protocol. 2. Shortness of breath due to COPD. He is on Solu-Medrol, ceftriaxone, and albuterol. The patient is also on Lasix 20 mg IV b.i.d. We will wait for result of the echocardiogram. 3. Carbon dioxide of 44. The patient is on BiPAP. Thank you very much for allowing me to participate in the care of this patient. Please do not hesitate to contact me for any questions regarding my evaluation. Monster Mcknight M.D. DR: Lillie JOB#: [id number] CC:
[2020-02-26 16:00] VITALS: BP 138/85
--- NOTE | 2020-02-26 16:29 | History and Physical Report ---
DATE OF ADMISSION: 02/25/2020 HISTORY OF PRESENT ILLNESS: This is a 59-year-old male who came to the emergency room with shortness of breath for one day prior to admission. The patient was found to also have CHF and COPD exacerbation. The patient has generalized weakness and placed on BiPAP. The patient is currently more awake and alert. He was added on aspirin, Lasix, and Solu-Medrol. Cardiology consult was obtained and I have seen the patient. The patient is currently alert and oriented x3. The patient also had ABG, which showed severe metabolic acidosis and now is improving. PAST MEDICAL HISTORY: Significant for COPD and history of CHF. MEDICATIONS: He is taking Lasix, but does not remember the dose. ALLERGIES: No known allergies. FAMILY HISTORY: Noncontributory. PHYSICAL EXAMINATION: GENERAL: This is an elderly white male, currently in the bed, on BiPAP, comfortable. VITAL SIGNS: Blood pressure is 114/74, pulse 75, saturation 99% on BiPAP, and temperature 96.8. HEENT: NAD. CHEST: Bilaterally scattered crackles. CARDIOVASCULAR: Regular rhythm. No gallop. No murmur. ABDOMEN: Soft. Positive bowel sounds. Nontender. EXTREMITIES: No edema. GENITOURINARY: Deferred. LABORATORY AND DIAGNOSTIC DATA: White count 8.7, hemoglobin 12, hematocrit 35, and platelets are 101,000. Chemistry, sodium 144, potassium 3.3, chloride is , BUN 7, creatinine 0.5, glucose 139. Lactic acid is 1. Troponins are negative. EKG is nonspecific T-wave changes. His microbiology reports are pending. Chest x-ray is showing nonspecific hyperinflation with questionable COPD; no acute infiltrate. ASSESSMENT: 1. Acute COPD exacerbation. 2. History of CHF. 3. Hypertension. 4. Weakness. 5. Metabolic encephalopathy secondary to COPD. PLAN: The patient is on BiPAP. Continue Solu-Medrol, aspirin, and Lasix. Continue ceftriaxone and bronchodilator treatments. Consider Pulmonary and Cardiology consult. Discussed with charge nurse. Rizwan Patel M.D. DR: Jorge JOB#: [id number] CC:
--- NOTE | 2020-02-26 19:08 | NUR ---
NURSE HAND-OFF REPORT: Important Events on Shift: none Patient Status: stable Diet: regular Pending Orders: Bipap prn & hs Pending Results/Labs:[] Pending MD notification:[] Latest Vital Signs: Temperature 97.9 , Pulse 60 , B/P 138 /85 , Respiratory Rate 20 , O2 SAT 94 , Bi-pap, O2 Flow Rate 10.0 . Vital Sign Comment: stable EKG Rhythm: Sinus Rhythm Rhythm change?: N MD Notified?: - MD Response: Latest Ragsdale Fall Score: 70 Fall Risk: High Risk Safety Measures: Call light Within Reach, Bed Alarm Zone 1, Side Rails Side Rails x2, Bed position Low and Locked. Fall Precautions: Yellow Socks Patient Fall Education Report given to FROY Belcher.
--- NOTE | 2020-02-26 19:10 | NUR ---
NURSE NOTES: Received pt's report from FROY Hay. Pt is on bed. A/O x4, Romansh speaker.IV site clean and intact noted. Pt is on O2 3L via NC. No s/s of respiratory distress noted. SpO2 97%, HR 95 at this moment. Urinal, call-light within reach. Bed is low and locked. Will continue to monitor with plan of care.
--- NOTE | 2020-02-26 19:54 | NUR ---
NURSE NOTES: Called Dr. Patel and left a message regarding pt's complaint of occasional headache on his occipital area and symptom of coughing.
[2020-02-26 20:00] VITALS: BP 130/90
--- NOTE | 2020-02-26 21:00 | NUR ---
NURSE NOTES: Pt has hyperpigmented skin area on his body. Pt states that pt used to have skin disease, they come from it. they are not new.
--- NOTE | 2020-02-26 23:50 | NUR ---
NURSE NOTES: RT tried to put BIPAP per order, pt refused. Pt is with 3L NC. SpO2 97%.
[2020-02-27] VITALS: BP 115/73
--- NOTE | 2020-02-27 01:38 | NUR ---
NURSE NOTES: Pt is O2 2L via NC. SpO2 97%, stable.
[2020-02-27 04:00] VITALS: BP 137/89
--- NOTE | 2020-02-27 04:00 | NUR ---
NURSE NOTES: Pt was able to walk to the bathroom to make a bowel movement with a little it administrative assistant.
--- NOTE | 2020-02-27 04:00 | NUR ---
NURSE NOTES: Pt stated that Pt fell many times before admission, smoke 1 pack a day for 40 years.
[2020-02-27 05:51] LABS: BASOPHILS % (AUTO) 0.2 % (0.0-2.0); EOSINOPHILS % (AUTO) 0.2 % (0.0-3.0); HEMATOCRIT 36.9 % (42.0-52.0); HEMOGLOBIN 11.9 G/DL (14.2-18.0); LYMPHOCYTES % (AUTO) 10.4 % (20.0-45.0); MEAN CORPUSCULAR VOLUME 98 FL (80-99); MONOCYTES % (AUTO) 8.8 % (1.0-10.0); NEUTROPHILS % (AUTO) 80.4 % (45.0-75.0); PLATELET COUNT 210 K/UL (150-450); RED BLOOD COUNT 3.78 M/UL (4.70-6.10); RED CELL DISTRIBUTION WIDTH 13.1 % (11.6-14.8); WHITE BLOOD COUNT 9.8 K/UL (4.8-10.8)
[2020-02-27 06:16] LABS: ANION GAP 0 mmol/L (5-15); BLOOD UREA NITROGEN 17 mg/dL (7-18); CALCIUM 8.9 MG/DL (8.5-10.1); CHLORIDE 100 MMOL/L (98-107); CREATININE 0.5 MG/DL (0.55-1.30); POTASSIUM 3.6 MMOL/L (3.5-5.1); SODIUM 145 MMOL/L (136-145)
[2020-02-27 06:28] LABS: CARBON DIOXIDE 45 MMOL/L (21-32)
--- NOTE | 2020-02-27 07:30 | NUR ---
NURSE HAND-OFF REPORT: Important Events on Shift:N/A Patient Status: Stable Diet: Regular diet Pending Orders: N/A Pending Results/Labs:N/A Pending MD notification:N/A Latest Vital Signs: Temperature 97.7 , Pulse 80 , B/P 137 /89 , Respiratory Rate 20 , O2 SAT 97 , Nasal Cannula, O2 Flow Rate 2.0 . Vital Sign Comment: Stable EKG Rhythm: Sinus Rhythm Rhythm change?: N MD Notified?: Ginger PALOMINO. Jorge REDDING Response: Latest Ragsdale Fall Score: 70 Fall Risk: High Risk Safety Measures: Call light Within Reach, Bed Alarm Zone 1, Side Rails Side Rails x2, Bed position Low and Locked. Fall Precautions: Yellow Socks Patient Fall Education Report given to FROY Barker.
--- NOTE | 2020-02-27 07:40 | NUR ---
NURSE NOTES: Received resident from FROY Belcher under the care of Dr. Patel. CHARLIE, full code. patient Alert and oriented x4, verbally responsive with clear speech in kinyarwanda. O2 via NC @ 2lpm. Regular diet. No complain of pain or discomfort at this time. Will continue to monitor.
[2020-02-27 08:00] VITALS: BP 134/93
[2020-02-27] MEDS: Aspirin Baby 81mg ORAL SCH (09:20)
[2020-02-27] MEDS: Solu-MEDROL 125mg Inj IVP SCH (09:21)
[2020-02-27] MEDS: cefTRIAXone 1 GM in D5W 55 ML IVPB SCH (09:35)
[2020-02-27 12:00] VITALS: BP 142/87
--- NOTE | 2020-02-27 12:30 | NUR ---
NURSE NOTES: Patient finished lunch and was able to consume 95% of plate. Noted drinking water from bedside pitcher, hydrating well. Patient able to verbalize needs. Will continue current plan of care.
--- NOTE | 2020-02-27 14:49 | NUR ---
NURSE NOTES: Dr. Patel came to see the patient, and decided o downgrade patient to TELE unit. Nurse baggage agent supervisor and charge nurse made aware. Awaiting bed in TELE unit. Will continue to monitor.
--- NOTE | 2020-02-27 14:54 | General Progress Note ---
Assessment/Plan Status: doing well, progressing Assessment/Plan: pt is doing ok cont steroids, iv abx, pt/ot transfer to tele charge nurse Subjective Allergies: Coded Allergies: No Known Allergies (Unverified , 02/25/20) UNABLE TO ASSESS (Unverified , 12/27/19) Subjective doing ok no sob offf bipap Objective Last 24 Hour Vital Signs Date Time Temp Pulse Resp B/P (MAP) Pulse Ox O2 Delivery O2 Flow Rate FiO2 02/27/20 12:00 Nasal Cannula 2.0 02/27/20 12:00 92 02/27/20 12:00 97.7 93 21 142/87 (105) 100 02/27/20 12:00 2.0 02/27/20 08:00 Nasal Cannula 2.0 02/27/20 08:00 90 02/27/20 08:00 2.0 02/27/20 08:00 97.5 89 20 134/93 (107) 100 02/27/20 04:00 97.7 80 20 137/89 (105) 97 02/27/20 04:00 Nasal Cannula 2.0 02/27/20 04:00 2.0 02/27/20 03:27 82 02/27/20 00:00 Nasal Cannula 2.0 02/27/20 00:00 96.6 88 22 115/73 (87) 97 02/27/20 00:00 2.0 02/26/20 23:35 93 02/26/20 20:00 3.0 02/26/20 20:00 97.9 89 20 130/90 (103) 97 02/26/20 20:00 Nasal Cannula 3.0 02/26/20 19:31 88 02/26/20 16:15 60 02/26/20 16:00 Bi-pap 02/26/20 16:00 97.9 99 20 138/85 (102) 94 02/26/20 16:00 40 02/26/20 14:53 98 18 95 30 Intake and Output 02/26/20 02/27/20 19:00 07:00 Intake Total 420 ml 500 ml Output Total 1075 ml 1800 ml Balance -655 ml -1300 ml Intake Oral 420 ml 500 ml Output Urine Total 1075 ml 1800 ml # Bowel Movements 2 Laboratory Tests 02/27/20 04:20: White Blood Count 9.8, Red Blood Count 3.78L, Hemoglobin 11.9L, Hematocrit 36.9L , Mean Corpuscular Volume 98, Mean Corpuscular Hemoglobin 31.4H, Mean Corpuscular Hemoglobin Concent 32.2, Red Cell Distribution Width 13.1, Platelet Count 210, Mean Platelet Volume 5.2L, Neutrophils (%) (Auto) 80.4H, Lymphocytes (%) (Auto) 10.4L, Monocytes (%) (Auto) 8.8, Eosinophils (%) (Auto) 0.2, Basophi ls (%) (Auto) 0.2, Sodium Level 145, Potassium Level 3.6, Chloride Level 100, Carbon Dioxide Level 45*H, Anion Gap 0L, Blood Urea Nitrogen 17, Creatinine 0.5L , Estimat Glomerular Filtration Rate > 60, Glucose Level 97, Calcium Level 8.9, Troponin I 0.000, Pro-B-Type Natriuretic Peptide 135H, Thyroid Stimulating Hormone (TSH) 0.143L Height (Feet): 5 Height (Inches): 10.00 Weight (Pounds): 160 EENT: PERRL/EOMI Neck: supple Cardiovascular: regular rhythm Respiratory/Chest: rhonchi - bilaterally Abdomen: soft, no mass Extremities: non-tender Neurologic: career technical supervisor II-XII grossly normal Skin: warm/dry Abimael Patel MD Feb 27, 2020 14:54
--- NOTE | 2020-02-27 15:34 | NUR ---
CASE MANAGEMENT: REVIEW SI: ENCEPHALOPATHY . CHF . COPD EXACERBATION T 96.6 HR 88 RR 22 BP 115/73 SAT 97% NC/2L H/H 11.9/36.9 K+ 3.3 CARBON DIOXIDE 45 IS: SOLU MEDROL IV QD CEFTRIAXONE IV Q24HR OFF BIPAP TRANSFER TO TELEMETRY ORDER TODAY STEP DOWN UNIT STATUS DCP: PATIENT IS FROM HOME
[2020-02-27 16:00] VITALS: BP 152/91
--- NOTE | 2020-02-27 16:27 | Cardiology Report ---
APPROVED REPORT EKG Measurement Heart [id number] <Conclusion> Sinus rhythm with 1st degree AV block Otherwise normal ECG
[2020-02-27] MEDS ORDERED: LORATADINE10 M2 PO (16:40)
--- NOTE | 2020-02-27 16:42 | Cardiology Progress Note ---
Assessment/Plan Status: stable Assessment/Plan ASSESSMENT AND PLAN: 1. Shortness of breath, likely due to the patient's severe COPD as bicarb is 44. First troponin is negative. EKG is nonischemic. I will get an echocardiogram and completely rule out [place] protocol. 2. Shortness of breath due to COPD. He is on Solu-Medrol, ceftriaxone, and albuterol. The patient is also on Lasix 20 mg IV b.i.d. We will wait for result of the echocardiogram. 3. Carbon dioxide of 44. The patient is on BiPAP. Normal left ventricular chamber size, systolic function and wall motion. Left ventricular ejection fraction estimated to be 55-60 %. No evidence of left ventricular hypertrophy. No evidence of pericardial fat or effusion. RV APPEARS ENLARGED All other cardiac chamber sizes are within normal limits. Calcification of aortic valve with adequate cusp excursion, aortic root dialation. Thickened mitral valve leaflets with normal excursion. Mitral annulus and aortic root calcification. Pulmonic valve not well visualized. Normal tricuspid valve structure. IVC dilated at 2.3 cm without physiologic collapse suggestive of increased RA pressure,RAP estimated 20mmHg. A color flow and spectral Doppler study was performed and revealed: Mild aortic insufficiency. Mild mitral regurgitation. Mitral diastolic velocities suggest reduced left ventricular relaxation c/w mild LV diastolic dysfunction (Grade I ). Moderate tricuspid regurgitation. Tricuspid systolic velocities suggests peak right ventricular systolic pressure of 63 mmHg, consistent with severe pulmonary hypertension. Trace pulmonic regurgitation . Subjective Cardiovascular: Reports: no symptoms Respiratory: Reports: no symptoms Gastrointestinal/Abdominal: Reports: no symptoms Genitourinary: Reports: no symptoms Subjective COVERAGE FOR [facility] Objective Last 24 Hour Vital Signs Date Time Temp Pulse Resp B/P (MAP) Pulse Ox O2 Delivery O2 Flow Rate FiO2 02/27/20 16:00 Nasal Cannula 2.0 02/27/20 16:00 2.0 02/27/20 12:00 Nasal Cannula 2.0 02/27/20 12:00 92 02/27/20 12:00 97.7 93 21 142/87 (105) 100 02/27/20 12:00 2.0 02/27/20 08:00 Nasal Cannula 2.0 02/27/20 08:00 90 02/27/20 08:00 2.0 02/27/20 08:00 97.5 89 20 134/93 (107) 100 02/27/20 04:00 97.7 80 20 137/89 (105) 97 02/27/20 04:00 Nasal Cannula 2.0 02/27/20 04:00 2.0 02/27/20 03:27 82 02/27/20 00:00 Nasal Cannula 2.0 02/27/20 00:00 96.6 88 22 115/73 (87) 97 02/27/20 00:00 2.0 02/26/20 23:35 93 02/26/20 20:00 3.0 02/26/20 20:00 97.9 89 20 130/90 (103) 97 02/26/20 20:00 Nasal Cannula 3.0 02/26/20 19:31 88 General Appearance: no apparent distress, alert EENT: PERRL/EOMI Neck: normal alignment, supple Rhythm: NSR Cardiovascular: normal rate, regular rhythm Respiratory/Chest: chest wall non-tender, lungs clear, normal breath sounds Abdomen: normal bowel sounds, non tender, no organomegaly Extremities: normal range of motion, non-tender, no calf tenderness Neurologic: patient access registrar II-XII grossly normal, no motor/sensory deficits Intake and Output 02/26/20 02/27/20 19:00 07:00 Intake Total 420 ml 500 ml Output Total 1075 ml 1800 ml Balance -655 ml -1300 ml Intake Oral 420 ml 500 ml Output Urine Total 1075 ml 1800 ml # Bowel Movements 2 Laboratory Tests Test 02/27/20 04:20 White Blood Count 9.8 K/UL (4.8-10.8) Red Blood Count 3.78 M/UL (4.70-6.10) L Hemoglobin 11.9 G/DL (14.2-18.0) L Hematocrit 36.9 % (42.0-52.0) L Mean Corpuscular Volume 98 FL (80-99) Mean Corpuscular Hemoglobin 31.4 PG (27.0-31.0) H Mean Corpuscular Hemoglobin Concent 32.2 G/DL (32.0-36.0) Red Cell Distribution Width 13.1 % (11.6-14.8) Platelet Count 210 K/UL (150-450) Mean Platelet Volume 5.2 FL (6.5-10.1) L Neutrophils (%) (Auto) 80.4 % (45.0-75.0) H Lymphocytes (%) (Auto) 10.4 % (20.0-45.0) L Monocytes (%) (Auto) 8.8 % (1.0-10.0) Eosinophils (%) (Auto) 0.2 % (0.0-3.0) Basophils (%) (Auto) 0.2 % (0.0-2.0) Sodium Level 145 MMOL/L (136-145) Potassium Level 3.6 MMOL/L (3.5-5.1) Chloride Level 100 MMOL/L (98-107) Carbon Dioxide Level 45 MMOL/L (21-32) *H Anion Gap 0 mmol/L (5-15) L Blood Urea Nitrogen 17 mg/dL (7-18) Creatinine 0.5 MG/DL (0.55-1.30) L Estimat Glomerular Filtration Rate > 60 mL/min (>60) Glucose Level 97 MG/DL (74-106) Calcium Level 8.9 MG/DL (8.5-10.1) Troponin I 0.000 ng/mL (0.000-0.056) Pro-B-Type Natriuretic Peptide 135 pg/mL (0-125) H Thyroid Stimulating Hormone (TSH) 0.143 uiU/mL (0.358-3.740) Microbiology Date/Time Source Procedure Growth Status 02/25/20 16:00 Blood Blood Culture - Preliminary NO GROWTH AFTER 24 HOURS Resulted 02/25/20 15:45 Nasopharynx SARS-CoV-2 RdRp Gene Assay - Final Complete 02/25/20 15:45 Blood Blood Culture - Preliminary NO GROWTH AFTER 24 HOURS Resulted Matthieu Chou MD Feb 27, 2020 16:42
[2020-02-27] MEDS ORDERED: ATORVASTATIN CA40 MG ORAL (16:43)
[2020-02-27] MEDS ORDERED: COREG3.125 MG ORAL (16:45)
[2020-02-27] MEDS ORDERED: LOSARTAN POTASS50 MG ORAL (16:47)
[2020-02-27] MEDS ORDERED: PROAIR HFA8.5 GM INH (16:49)
[2020-02-27] MEDS ORDERED: WIXELA 250-501 EACH IH (16:52)
[2020-02-27] MEDS ORDERED: SPIRIVA18 MCG INH (16:53)
[2020-02-27] MEDS ORDERED: FUROSEMIDE20 M1 ORAL (16:54)
--- NOTE | 2020-02-27 18:00 | NUR ---
NURSE NOTES: Transfered patient via bed on stable condition to TELEMETRY unit, room 203-1. Report given to FROY Maki staff of TELE unit. Belongings endorsed and signed.
[2020-02-27] MEDS ORDERED: NS 275ml ONE (18:50)
[2020-02-27] MEDS ORDERED: D5W 275ml ONE (18:50)
[2020-02-27] MEDS ORDERED: Tubing IV Secondary IV ONE (18:50)
--- NOTE | 2020-02-27 19:23 | NUR ---
NURSE HAND-OFF REPORT: Important Events on Shift: Pt was recently transferred to . Endorsed to FROY Lara to double check the skin. Per initial assessment, pt only has hyperpigmentation/discoloration/healing wounds from falls. Patient Status: stable Diet: reg Pending Orders: Pending Results/Labs: Pending MD notification: Latest Vital Signs: Temperature 97.7 , Pulse 93 , B/P 152 /91 , Respiratory Rate 20 , O2 SAT 97 , Nasal Cannula, O2 Flow Rate 2.0 . Vital Sign Comment: EKG Rhythm: Sinus Rhythm Rhythm change?: N Notified?: Ginger PALOMINO. Jorge REDDING Response: Latest Ragsdale Fall Score: 70 Fall Risk: High Risk Safety Measures: Call light Within Reach, Bed Alarm Zone 1, Side Rails Side Rails x2, Bed position Low and Locked. Fall Precautions: Yellow Socks Patient Fall Education Report given to FROY Lara
--- NOTE | 2020-02-27 19:24 | NUR ---
NURSE NOTES: Received hand-off report from Shanthi Holt RN. Patient in semi-shane's position, alert and orientedx4, stable condition, breathing unlabored and even, on nasal cannula oxygen 2L, placed call light within reach and instructed to call if needs to get up, bed alarm activated, bed in lowest and locked position, manager monitoring in place, IV 18g site on left hand is intact, no leaking, no redness, no infiltration, no tenderness / pain.
[2020-02-27 20:00] VITALS: BP 133/86
--- NOTE | 2020-02-27 20:24 | NUR ---
NURSE NOTES: Notified Dr. Patel regarding potassium level of 3.6 prior to giving furosemide. Dr. Patel states there is no need for a potassium supplement at this time.
[2020-02-28] VITALS: BP 130/82
[2020-02-28 04:00] VITALS: BP 125/85
--- NOTE | 2020-02-28 04:45 | NUR ---
NURSE NOTES: Notified respiratory therapist regarding patient's BiPAP order for QHS and PRN since patient's carbon dioxide level is 45. However, patient is adamantly refusing. Risks and benefits explained; still refusing.
--- NOTE | 2020-02-28 06:53 | NUR ---
NURSE HAND-OFF REPORT: Important Events on Shift: Patient Status: full code, stable condition, patient breathing unlabored and even, NC on 2L; endorsed to receiving nurse of hyperactive bowel sounds, and CT of the head recommendation to Dr. Patel Diet: regular Pending Orders: Pending Results/Labs: Pending MD notification: Latest Vital Signs: Temperature 97.3 , Pulse 93 , B/P 125 /85 , Respiratory Rate 18 , O2 SAT 96 , Nasal Cannula, O2 Flow Rate 2.0 . Vital Sign Comment: STABLE EKG Rhythm: Sinus Rhythm Rhythm change?: N MD Notified?: Ginger Patel MD Response: Latest Ragsdale Fall Score: 70 Fall Risk: High Risk Safety Measures: Call light Within Reach, Bed Alarm Zone 1, Side Rails Side Rails x2, Bed position Low and Locked. Fall Precautions: Yellow Socks Yellow Gown Door Sign Patient Fall Education Report given to Cheyanne Andrade RN.
--- NOTE | 2020-02-28 07:26 | NUR ---
NURSE NOTES: Received report from FROY Crandall. Patient is A/O x 3-4 and sitting eating breakfast. Pt shows no signs of SOB or acute distress. Pt is on NC @ 2L and SATing well. Pt on desk pens assembler showing SR. Pt has IV site LH 18G which is intact and patent. Pt has call light within reach and instructed to call if needs to get up, bed alarm activated, bed in lowest and locked. Will continue plan of care.
[2020-02-28 08:00] VITALS: BP 130/87
--- NOTE | 2020-02-28 08:35 | NUR ---
NURSE NOTES: Notified respiratory therapist regarding patient's BiPAP order for QHS and PRN since patient's carbon dioxide level is 45. Rt is adamantly refusing to wear. Risks and benefits explained and Rt stated they will try again.
[2020-02-28] MEDS: Solu-MEDROL 125mg Inj IVP SCH (09:05)
[2020-02-28] MEDS: Aspirin Baby 81mg ORAL SCH (09:05)
[2020-02-28] MEDS: cefTRIAXone 1 GM in D5W 55 ML IVPB SCH (09:05)
--- NOTE | 2020-02-28 11:33 | NUR ---
ORDNANCE OFFICER NOTE SW met w/ pt to discuss his concern/needs. SW communicated w/ pt in Sami. Pt was residing alone at [facility] [place] [address]. PT shares he received eviction notice and he will not be able to return home upon DC. Pt is unemployed, and receives no income. PT agreed to be referred to [facility]. LEAH spoke w/ Leann from [facility] [phone] and placed pt on the wait list. Per Leann, the protocol has changed as of 02/25/20 and there is no estimated wait time. Addendum: 02/28/20 at 1137 by NICHOLE LYNN PT does not have any family in [place] PT has no children. PT reports his returned to [facility] and she is no longer in contact. Unique ID# [id number] Pt's cellphone: [phone]
[2020-02-28 12:00] VITALS: BP 130/79
--- NOTE | 2020-02-28 12:24 | NUR ---
CASE MANAGEMENT: REVIEW 02/28/2020 SI:COPD EXACERBATION VS: T 97.7 HR 93 RR 21 B/P 142/87 SATS 100% ON 2L/NC LABS: NO LABS TODAY IS: LASIX IV Q12H SOLU MEDROL IV QD ASA PO QD CEFTRIAXONE IV Q24H TELE DCP: : "HOME" W/ OXYGEN PLAN OF CARE: DIURESIS
--- NOTE | 2020-02-28 12:33 | NUR ---
INSURANCE REVIEW FAXED # [phone] FAX# [phone] REVIEWS/CLINICALS Addendum: 02/28/20 at 1308 by Yuko Jackson CM EOB DATE REQUESTED
--- NOTE | 2020-02-28 12:50 | NUR ---
WIRE WRAPPER MACHINE OPERATOR NOTE PT requested to meet w/ this SW again. PT reports his relative will assist w/ paying his phone bill that his relative will picket labor union his money in the evening. PT declined to provide his relative's contact information, stating "He can't help me. He is busy with his own life." SW attempted to explore other placement options other than project roomkey. SW discussed board and care and independent living facilities. Pt will have $400 left Addendum: 02/28/20 at 1254 by NICHOLE LYNN and pt declined to consider independent living facilities. Pt stated "I only have $400 left so I don't want to consider that option." PT does not have ID with him, thus he will not be able to apply GR and food stamp at this time. LEAH will continue to F/U. Addendum: 02/28/20 at 1313 by NICHOLE LYNN LEAH encouraged pt to call [employer] (offers Swedish language service) to inquire GR and food stamp. PT verbalized understanding.
--- NOTE | 2020-02-28 13:07 | NUR ---
NURSES NOTES: Pt walked around with PT today with 4L NC and is SATing @ 99%. Tried to take O2 off and let PT walk with pt. Pt became SOB and tachycardiac and placed O2 back on pt. Pt continued to walk with PT around the unit.
--- NOTE | 2020-02-28 13:08 | NUR ---
CASE MANAGEMENT: NOTE PATIENT USES OXYGEN IN THE HOME. PT DOES NOT REMEMBER WHAT IS THE NAME OF OXYGEN COMPANY. ROOM AIR ASSESSMENT REQUESTED FROM NURSING. IF ROOM AIR IS NOT TOLERATED ABGs WILL BE ORDERED. CM WILL F/U ON RESULTS
--- NOTE | 2020-02-28 13:30 | Cardiology Progress Note ---
Assessment/Plan Status: stable Assessment/Plan ASSESSMENT AND PLAN: 1. Shortness of breath, likely due to the patient's severe COPD as bicarb is 44. First troponin is negative. EKG is nonischemic. I will get an echocardiogram and completely rule out HI protocol. 2. Shortness of breath due to COPD. He is on Solu-Medrol, ceftriaxone, and albuterol. The patient is also on Lasix 20 mg IV b.i.d. We will wait for result of the echocardiogram. 3. Carbon dioxide of 44. The patient is on BiPAP. Normal left ventricular chamber size, systolic function and wall motion. Left ventricular ejection fraction estimated to be 55-60 %. No evidence of left ventricular hypertrophy. No evidence of pericardial fat or effusion. RV APPEARS ENLARGED All other cardiac chamber sizes are within normal limits. Calcification of aortic valve with adequate cusp excursion, aortic root dialation. Thickened mitral valve leaflets with normal excursion. Mitral annulus and aortic root calcification. Pulmonic valve not well visualized. Normal tricuspid valve structure. IVC dilated at 2.3 cm without physiologic collapse suggestive of increased RA pressure,RAP estimated 20mmHg. A color flow and spectral Doppler study was performed and revealed: Mild aortic insufficiency. Mild mitral regurgitation. Mitral diastolic velocities suggest reduced left ventricular relaxation c/w mild LV diastolic dysfunction (Grade I ). Moderate tricuspid regurgitation. Tricuspid systolic velocities suggests peak right ventricular systolic pressure of 63 mmHg, consistent with severe pulmonary hypertension. Trace pulmonic regurgitation . Subjective Cardiovascular: Reports: no symptoms Respiratory: Reports: no symptoms Gastrointestinal/Abdominal: Reports: no symptoms Genitourinary: Reports: no symptoms Subjective COVERAGE FOR [facility] Objective Last 24 Hour Vital Signs Date Time Temp Pulse Resp B/P (MAP) Pulse Ox O2 Delivery O2 Flow Rate FiO2 02/28/20 12:00 101 02/28/20 12:00 97.1 98 19 130/79 (96) 96 02/28/20 12:00 2.0 02/28/20 08:28 2.0 02/28/20 08:20 98 Nasal Cannula 2.0 28 02/28/20 08:00 98.1 93 18 130/87 (101) 98 02/28/20 08:00 97 02/28/20 08:00 98.1 93 18 130/87 (101) 96 02/28/20 08:00 Nasal Cannula 2.0 02/28/20 04:00 97.3 93 18 125/85 (98) 96 02/28/20 04:00 88 02/28/20 04:00 2.0 02/28/20 04:00 Nasal Cannula 2.0 02/28/20 00:00 95 02/28/20 00:00 Nasal Cannula 2.0 02/28/20 00:00 97.5 95 16 130/82 (98) 96 02/27/20 22:50 95 02/27/20 20:00 97.4 89 16 133/86 (102) 98 02/27/20 20:00 2.0 02/27/20 20:00 Nasal Cannula 2.0 02/27/20 20:00 89 02/27/20 17:00 97 Nasal Cannula 2.0 28 02/27/20 16:00 93 02/27/20 16:00 Nasal Cannula 2.0 02/27/20 16:00 97.7 101 20 152/91 (111) 95 02/27/20 16:00 2.0 General Appearance: no apparent distress, alert EENT: PERRL/EOMI, TMs normal, pharynx normal Neck: non-tender, normal alignment, supple Rhythm: NSR Cardiovascular: normal peripheral pulses, normal rate, regular rhythm Respiratory/Chest: chest wall non-tender, lungs clear, no respiratory distress Abdomen: normal bowel sounds, non tender, soft, no organomegaly Extremities: normal range of motion, non-tender, normal inspection 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
--- NOTE | 2020-02-28 14:47 | NUR ---
NURSES NOTES: Received a order to do ABG for pt. To see where he is regarding needing oxygen therapy at home for placement. Order carried out.
[2020-02-28 16:00] VITALS: BP 151/83
--- NOTE | 2020-02-28 16:14 | NUR ---
P.T Note: P.T evaluation completed and tx initiated. Please refer to P.T evaluation for current functional status.
--- NOTE | 2020-02-28 17:04 | General Progress Note ---
Subjective Allergies: Coded Allergies: No Known Allergies (Unverified , 02/25/20) UNABLE TO ASSESS (Unverified , 12/27/19) Subjective doing ok off bipap on 4 litre oxygen episode of hyopxia Objective Last 24 Hour Vital Signs Date Time Temp Pulse Resp B/P (MAP) Pulse Ox O2 Delivery O2 Flow Rate FiO2 02/28/20 16:00 99.1 86 22 151/83 (105) 93 02/28/20 16:00 2.0 02/28/20 12:00 101 02/28/20 12:00 97.1 98 19 130/79 (96) 96 02/28/20 12:00 2.0 02/28/20 08:28 2.0 02/28/20 08:20 98 Nasal Cannula 2.0 28 02/28/20 08:00 98.1 93 18 130/87 (101) 98 02/28/20 08:00 97 02/28/20 08:00 98.1 93 18 130/87 (101) 96 02/28/20 08:00 Nasal Cannula 2.0 02/28/20 04:00 97.3 93 18 125/85 (98) 96 02/28/20 04:00 88 02/28/20 04:00 2.0 02/28/20 04:00 Nasal Cannula 2.0 02/28/20 00:00 95 02/28/20 00:00 Nasal Cannula 2.0 02/28/20 00:00 97.5 95 16 130/82 (98) 96 02/27/20 22:50 95 02/27/20 20:00 97.4 89 16 133/86 (102) 98 02/27/20 20:00 2.0 02/27/20 20:00 Nasal Cannula 2.0 02/27/20 20:00 89 Intake and Output 02/27/20 02/28/20 19:00 07:00 Intake Total 495 ml 300 ml Output Total 800 ml Balance -305 ml 300 ml Intake Oral 440 ml 300 ml IV Total 55 ml Output Urine Total 800 ml # Voids 2 # Bowel Movements 3 Laboratory Tests 02/28/20 14:58: Arterial Blood pH 7.335L, Arterial Blood Partial Pressure CO2 92.1*H, Arterial Blood Partial Pressure O2 90.4, Arterial Blood HCO3 48.0*H, Arterial Blood Oxygen Saturation 96.3, Arterial Blood Base Excess 17.3*H, Onofre Test Positive Height (Feet): 5 Height (Inches): 10.00 Weight (Pounds): 160 EENT: PERRL/EOMI, pharynx normal Neck: supple Cardiovascular: regular rhythm Respiratory/Chest: rhonchi - bilaterally, rhonchi - right, expiratory wheezing Abdomen: non tender, soft Extremities: non-tender Assessment/Plan Status: stable Assessment/Plan: pt is doing ok decreasing steroids pt/ot transfer to tele dw charge nurse dc plan to snf/bc Abimael Patel MD Feb 28, 2020 17:04
--- NOTE | 2020-02-28 17:18 | NUR ---
NURSE NOTES: Dr. Patel came on to the unit and spoke to pt. Pt stated he had no where to go and he had no home. Dr Patel wants to discharge tomorrow to SNF if available. He also wrote out a prescription for medications just in case he has somewhere to go or anything changes.
--- NOTE | 2020-02-28 19:31 | NUR ---
NURSE HAND-OFF REPORT: Important Events on Shift:[] Patient Status: [] Diet: [] Pending Orders: [] Pending Results/Labs:[] Pending MD notification:[] Latest Vital Signs: Temperature 99.1 , Pulse 101 , B/P 151 /83 , Respiratory Rate 22 , O2 SAT 93 , Nasal Cannula, O2 Flow Rate 2.0 . Vital Sign Comment: [] EKG Rhythm: Sinus Rhythm Rhythm change?: N MD Notified?: Ginger Patel MD Response: Latest Ragsdale Fall Score: 70 Fall Risk: High Risk Safety Measures: Call light Within Reach, Bed Alarm Zone 1, Side Rails Side Rails x2, Bed position Low and Locked. Fall Precautions: Yellow Socks Yellow Gown Door Sign Patient Fall Education Report given to []. Addendum: 02/28/20 at 1949 by Cheyanne Andrade RN Important Events: Dr Patel wants to discharge tomorrow to either home or SNF. CM notified regarding discharge and placement. Dr Patel wrote prescription out just in case he goes to a home Status: Stable Diet: Regular Report given to RN. Paz.
--- NOTE | 2020-02-28 19:43 | NUR ---
NURSE NOTES: Report received from Cheyanne MCDUFFIE. Patient is noted to be awake and alert x 4. Patient has no complaints of chest pain or shortness of breath at this time. Patient is noted to be on oxygen via nasal canula at 2 liters. Was endorsed to Jase MCDUFFIE that patient requires oxygen to ambulate and at times oxygen needs to be increased to 4 liters after ambulation, but per Cheyanne MCDUFFIE, patient is able to be titrated back down to 2 liters of oxygen. Endorsed to Jase MCDUFFIE that patient requires assistance when ambulating, but will use call light for assistance. Endorsed to Jase MCDUFFIE that patient has a discharge order in place. Endorsed to Jase MCDUFFIE that case management is involved with discharge because as of now the patient does not have a home to be discharged to at this time. Primary MD is okay with patient being discharged to SNF. Bed is locked, in lowest position, and alarmed. Call light in reach. Will continue to follow plan of care.
[2020-02-28 20:00] VITALS: BP 129/86
[2020-02-29] VITALS (7 sets, daily range): BP systolic 101–131; BP diastolic 56–84
--- NOTE | 2020-02-29 07:03 | NUR ---
NURSE HAND-OFF REPORT: Important Events on Shift: patient was stable throughout the shift. Jase MCDUFFIE endorsed that patient is a high fall risk and is unsteady on feet and does not call to get up. Endorsed to Lorelei MCDUFFIE that bed alarm is on. Endorsed to Lorelei MCDUFFIE that patient has active discharge order, but does not currently have a discharge location. Patient Status: full code Diet: regular Pending Orders: pending discharge - awaiting discharge location. Pending Results/Labs: none Pending MD notification:none Latest Vital Signs: Temperature 97.2 , Pulse 89 , B/P 129 /80 , Respiratory Rate 16 , O2 SAT 100 , Nasal Cannula, O2 Flow Rate 2.0 . Vital Sign Comment: within normal limits. EKG Rhythm: SR w/1degree HB Rhythm change?: N Notified?: N -. Jorge REDDING Response: patient has history of this rhythm Latest Ragsdale Fall Score: 70 Fall Risk: High Risk Safety Measures: Call light Within Reach, Bed Alarm Zone 1, Side Rails Side Rails x2, Bed position Low and Locked. Fall Precautions: Yellow Socks Yellow Gown Door Sign Patient Fall Education Report given to Lorelei MCDUFFIE.
--- NOTE | 2020-02-29 07:18 | NUR ---
NURSE NOTES: Received report from Jase/RN. Patient sleeping, in semi-fowlers position. On 2L nasal cannula, no distress or SOB noted. Able to make needs known. Bed in the lowest position and locked. Side rails up X2. Call light within reach, encouraged to use it when needed. Will continue plan of care.
--- NOTE | 2020-02-29 07:47 | NUR ---
NURSE NOTES: Called Dr Chou regarding Pt having wide QRS tachy that appears to be V-tach, he said he is on his way to come see the pt.
--- NOTE | 2020-02-29 08:51 | NUR ---
CASE MANAGEMENT: REVIEW 02/29/2020 SI:COPD EXACERBATION VS: T 97.5 HR 98 RR 16 B/P 101/56 SATS 97% ON 2L/NC LABS: NO LABS TODAY IS: LASIX IV Q12H SOLU MEDROL IV QD ASA PO QD CEFTRIAXONE IV Q24H TELE DCP: : "HOME" W/ OXYGEN PLAN OF CARE: DIURESIS
--- NOTE | 2020-02-29 08:53 | NUR ---
INSURANCE REVIEW FAXED # [phone] FAX# [phone] REVIEWS/CLINICALS
[2020-02-29] MEDS: Aspirin Baby 81mg ORAL SCH (08:55)
[2020-02-29] MEDS: Solu-MEDROL 125mg Inj IVP SCH (08:56)
[2020-02-29] MEDS: cefTRIAXone 1 GM in D5W 55 ML IVPB SCH (08:57)
--- NOTE | 2020-02-29 11:15 | NUR ---
RD ASSESSMENT & RECOMMENDATIONS SEE CARE ACTIVITY FOR COMPLETE ASSESSMENT DAILY ESTIMATED NEEDS: Needs based on Underweight, COPD, wounds/ 58.5kg 30-35 kcals/kg 3044-5247 total kcals 1.25-1.5 g protein/kg 73-87 g total protein 20-25 mL/kg 3034-9855 total fluid mLs NUTRITION DIAGNOSIS: Increased kcal/prot needs R/T wound healing, underweight status, pulmonary dx as evidenced by admitted w/ multiple wounds per photo, pending eval, low BMI of 18.5, pt @ 78% IBW, h/o COPD. CURRENT DIET:REGULAR PO DIET RECOMMENDATIONS: LOW NA/ texture as tolerated ADDITIONAL RECOMMENDATIONS: * Daily standing wt as able for accuracy * Ensure Enlive BID w/ meals * Rec WC eval for multiple woudn photos: add MVI x 1, Vit C 250mg QD * Monitor BGs w/ Solumedrol * TSH low (0.143), rec MD zambrano for possible thyroid med * Monitor lytes closely w/ Lasix, replete as needed
--- NOTE | 2020-02-29 11:46 | General Progress Note ---
Subjective Allergies: Coded Allergies: No Known Allergies (Unverified , 02/25/20) UNABLE TO ASSESS (Unverified , 12/27/19) Subjective doing ok off bipap on 4 litre oxygen episode of hyopxia Objective Last 24 Hour Vital Signs Date Time Temp Pulse Resp B/P (MAP) Pulse Ox O2 Delivery O2 Flow Rate FiO2 02/29/20 09:00 Nasal Cannula 2.0 02/29/20 08:09 98 Nasal Cannula 2.0 28 02/29/20 08:00 2.0 40 02/29/20 08:00 89 02/29/20 08:00 97.5 98 16 101/56 (71) 97 02/29/20 04:00 89 02/29/20 04:00 2.0 40 02/29/20 04:00 97.2 95 16 129/80 (96) 100 02/29/20 00:00 97.3 85 16 116/75 (89) 97 02/29/20 00:00 82 02/28/20 21:00 Nasal Cannula 2.0 02/28/20 20:21 96 Nasal Cannula 2.0 28 02/28/20 20:00 96.6 96 16 129/86 (100) 97 02/28/20 20:00 2.0 40 02/28/20 20:00 94 02/28/20 16:00 101 02/28/20 16:00 99.1 86 22 151/83 (105) 93 02/28/20 16:00 2.0 02/28/20 12:00 101 02/28/20 12:00 97.1 98 19 130/79 (96) 96 02/28/20 12:00 2.0 Intake and Output 02/28/20 02/29/20 19:00 07:00 Intake Total 420 ml 120 ml Balance 420 ml 120 ml Intake Oral 420 ml 120 ml # Voids 3 2 Laboratory Tests 02/28/20 14:58: Arterial Blood pH 7.335L, Arterial Blood Partial Pressure CO2 92.1*H, Arterial Blood Partial Pressure O2 90.4, Arterial Blood HCO3 48.0*H, Arterial Blood Oxygen Saturation 96.3, Arterial Blood Base Excess 17.3*H, Onofre Test Positive Height (Feet): 5 Height (Inches): 10.00 Weight (Pounds): 160 Assessment/Plan Status: stable Assessment/Plan: pt is doing ok decreasing steroids pt/ot transfer to tele dw charge nurse dc plan to snf/bc Abimael Patel MD Feb 29, 2020 11:46
--- NOTE | 2020-02-29 11:56 | NUR ---
DISCHARGE PLANNING: NOTE REFERRAL SENT TO AB HOOPER, DINAH HOOPER, AND MALICK SHORE FOR REVIEW Addendum: 02/29/20 at 1303 by Yuko Jackson CM "snf packet" sent to Jeovanny Cobb [facility] for assistance in finding placement
--- NOTE | 2020-02-29 12:51 | Cardiology Progress Note ---
Assessment/Plan Status: stable Assessment/Plan ASSESSMENT AND PLAN: 1. Shortness of breath, likely due to the patient's severe COPD as bicarb is 44. ACS negative 2. Shortness of breath due to COPD. He is on Solu-Medrol, ceftriaxone, and albuterol. The patient is also on Lasix 20 mg IV b.i.d. Transition to PO 3. Carbon dioxide of 44. The patient is on BiPAP. CLEAR TO DC FROM CARDIOLOGY Normal left ventricular chamber size, systolic function and wall motion. Left ventricular ejection fraction estimated to be 55-60 %. No evidence of left ventricular hypertrophy. No evidence of pericardial fat or effusion. RV APPEARS ENLARGED All other cardiac chamber sizes are within normal limits. Calcification of aortic valve with adequate cusp excursion, aortic root dialation. Thickened mitral valve leaflets with normal excursion. Mitral annulus and aortic root calcification. Pulmonic valve not well visualized. Normal tricuspid valve structure. IVC dilated at 2.3 cm without physiologic collapse suggestive of increased RA pressure,RAP estimated 20mmHg. A color flow and spectral Doppler study was performed and revealed: Mild aortic insufficiency. Mild mitral regurgitation. Mitral diastolic velocities suggest reduced left ventricular relaxation c/w mild LV diastolic dysfunction (Grade I ). Moderate tricuspid regurgitation. Tricuspid systolic velocities suggests peak right ventricular systolic pressure of 63 mmHg, consistent with severe pulmonary hypertension. Trace pulmonic regurgitation . Subjective Respiratory: Reports: no symptoms Gastrointestinal/Abdominal: Reports: no symptoms Genitourinary: Reports: no symptoms Subjective COVERAGE FOR [facility] Stable on oxygen, awaiting dispo placement Objective Last 24 Hour Vital Signs Date Time Temp Pulse Resp B/P (MAP) Pulse Ox O2 Delivery O2 Flow Rate FiO2 02/29/20 12:00 97.8 92 20 128/79 (95) 97 02/29/20 09:00 Nasal Cannula 2.0 02/29/20 08:09 98 Nasal Cannula 2.0 28 02/29/20 08:00 2.0 40 02/29/20 08:00 89 02/29/20 08:00 97.5 98 16 101/56 (71) 97 02/29/20 04:00 89 02/29/20 04:00 2.0 40 02/29/20 04:00 97.2 95 16 129/80 (96) 100 02/29/20 00:00 97.3 85 16 116/75 (89) 97 02/29/20 00:00 82 02/28/20 21:00 Nasal Cannula 2.0 02/28/20 20:21 96 Nasal Cannula 2.0 28 02/28/20 20:00 96.6 96 16 129/86 (100) 97 02/28/20 20:00 2.0 40 02/28/20 20:00 94 02/28/20 16:00 101 02/28/20 16:00 99.1 86 22 151/83 (105) 93 02/28/20 16:00 2.0 General Appearance: no apparent distress, alert EENT: PERRL/EOMI, normal ENT inspection, TMs normal, pharynx normal Neck: non-tender, normal alignment, supple, normal inspection, no JVD Rhythm: NSR Cardiovascular: normal peripheral pulses, normal rate, regular rhythm Respiratory/Chest: chest wall non-tender, lungs clear, normal breath sounds Abdomen: normal bowel sounds, non tender, soft Extremities: normal range of motion, non-tender, normal inspection, no calf tenderness 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 normal, no motor/sensory deficits Intake and Output 02/28/20 02/29/20 19:00 07:00 Intake Total 420 ml 120 ml Balance 420 ml 120 ml Intake Oral 420 ml 120 ml # Voids 3 2 Laboratory Tests Test 02/28/20 14:58 02/29/20 12:30 Arterial Blood pH 7.335 (7.350-7.450) Arterial Blood Partial Pressure CO2 92.1 mmHg (35.0-45.0) *H Arterial Blood Partial Pressure O2 90.4 mmHg (75.0-100.0) Arterial Blood HCO3 48.0 mmol/L (22.0-26.0) *H Arterial Blood Oxygen Saturation 96.3 % (95-100) Arterial Blood Base Excess 17.3 (-2-2) *H Onofre Test Positive Sodium Level Pending Potassium Level Pending Chloride Level Pending Carbon Dioxide Level Pending Blood Urea Nitrogen Pending Creatinine Pending Estimat Glomerular Filtration Rate Pending Glucose Level Pending Calcium Level Pending Matthieu Chou MD Feb 29, 2020 12:51
[2020-02-29 12:58] LABS: BLOOD UREA NITROGEN 23 mg/dL (7-18); CALCIUM 9.5 MG/DL (8.5-10.1); CHLORIDE 93 MMOL/L (98-107); CREATININE 0.6 MG/DL (0.55-1.30); POTASSIUM 4.1 MMOL/L (3.5-5.1); SODIUM 141 MMOL/L (136-145)
[2020-02-29 13:03] LABS: CARBON DIOXIDE > 45 MMOL/L (21-32)
--- NOTE | 2020-02-29 15:17 | NUR ---
TRANSFER TO FLOOR: Patient transferred to Med-Surg room 408-[address] Patel order. Report given to Alan/FROY. bus monitor removed. Patient in stable condition, no distress or SOB noted. Belongings given to transferring nurse.
--- NOTE | 2020-02-29 15:17 | NUR ---
NURSE NOTES: Received report from FROY Moseley. Patient transferred from Tele. Patient received in bed, AAOx4, setswana speaking, ambulatory. Patient belongings were checked and signed with RN. Yarn Skeins Examiner gave patients money from [employer], per RN dewayne, patients family member will come and knot picker cloth the money. Patient has dentures x2, currently wearing. Patient is on NC 2L/M, breathing is even and unlabored. Patient denies pain at this time. Patient IV site patent and intact. Skin is intact, with slightly hyperpigmentation in areas of skin, but overall skin is intact. Patient is ambulatory, RN instructed patient to use call light before ambulating if felt dizzy or weak. Bed is locked and placed in lowest position. Call light within reach. Will continue to monitor.
--- NOTE | 2020-02-29 19:25 | NUR ---
NURSE HAND-OFF: Important Events on Shift:n/a Patient Status: n/a Diet: n/a Pending Orders: n/a Pending Results/Labs:n/a Pending MD notification:n/a Latest Vital Signs: Temperature 98.5 , Pulse 89 , B/P 123 /68 , Respiratory Rate 17 , O2 SAT 97 , Nasal Cannula, O2 Flow Rate 2.0 . Vital Sign Comment: n/a Latest Ragsdale Fall Score: 70 Fall Risk: High Risk Safety Measures: Call light Within Reach, Bed Alarm Zone 1, Side Rails Side Rails x2, Bed position Low and Locked. Fall Precautions: Yellow Socks Yellow Gown Door Sign Patient Fall Education Report given to FROY Alfredo.
--- NOTE | 2020-02-29 19:27 | NUR ---
NURSE NOTES: Patient sitting up in bed, awake and alert. Able to make needs known. No signs of distress or SOB. IV in tact and patent. Bed locked and in lowest position. Call light in reach. Will continue to monitor the patient.
[2020-03-01 04:00] VITALS: BP 133/67
--- NOTE | 2020-03-01 07:36 | NUR ---
NURSE HAND-OFF: Important Events on Shift: N/A Patient Status: Stable Diet: Reg Pending Orders: N/A Pending Results/Labs: N/A Pending MD notification: N/A Latest Vital Signs: Temperature 98.0 , Pulse 81 , B/P 133 /67 , Respiratory Rate 20 , O2 SAT 98 , Nasal Cannula, O2 Flow Rate 2.0 . Vital Sign Comment: Latest Ragsdale Fall Score: 70 Fall Risk: High Risk Safety Measures: Call light Within Reach, Bed Alarm Zone 1, Side Rails Side Rails x2, Bed position Low and Locked. Fall Precautions: Yellow Socks Yellow Gown Door Sign Patient Fall Education Report given to FROY Duke
--- NOTE | 2020-03-01 07:50 | NUR ---
NURSE NOTES: PT AXOX4, GERMAN-SPEAKING, CALM, AND EATING BREAKFAST IN BED. PT DENIES PAIN OR SOB. PT STATES HE DOES GET DIZZY WHEN GETTING UP FROM BED AT TIMES. RN EDUCATED PT TO SIT UP FOR 1 MINUTE BEFORE WALKING. IF FEELING DIZZY, DO NOT ATTEMPT TO WALK INDEPENDENTLY BUT CALL FOR STAFF ASSIST USING CALL BUTTON. PT VERBALIZED UNDERSTANDING. IN NO APPARENT DISTRESS AT THIS TIME. WILL CONTINUE TO MONITOR.
[2020-03-01 08:00] VITALS: BP 110/90
[2020-03-01] MEDS: Aspirin Baby 81mg ORAL SCH (08:10)
[2020-03-01] MEDS: Solu-MEDROL 125mg Inj IVP SCH (08:10)
[2020-03-01] MEDS: cefTRIAXone 1 GM in D5W 55 ML IVPB SCH (08:46)
--- NOTE | 2020-03-01 10:53 | Cardiology Progress Note ---
Assessment/Plan Status: stable Assessment/Plan ASSESSMENT AND PLAN: 1. Shortness of breath, likely due to the patient's severe COPD as bicarb is 44. ACS negative 2. Shortness of breath due to COPD. He is on Solu-Medrol, ceftriaxone, and albuterol. The patient is also on Lasix 20 mg IV b.i.d. Transition to PO 3. Carbon dioxide of 44. The patient is on BiPAP. CLEAR TO DC FROM CARDIOLOGY Normal left ventricular chamber size, systolic function and wall motion. Left ventricular ejection fraction estimated to be 55-60 %. No evidence of left ventricular hypertrophy. No evidence of pericardial fat or effusion. RV APPEARS ENLARGED All other cardiac chamber sizes are within normal limits. Calcification of aortic valve with adequate cusp excursion, aortic root dialation. Thickened mitral valve leaflets with normal excursion. Mitral annulus and aortic root calcification. Pulmonic valve not well visualized. Normal tricuspid valve structure. IVC dilated at 2.3 cm without physiologic collapse suggestive of increased RA pressure,RAP estimated 20mmHg. A color flow and spectral Doppler study was performed and revealed: Mild aortic insufficiency. Mild mitral regurgitation. Mitral diastolic velocities suggest reduced left ventricular relaxation c/w mild LV diastolic dysfunction (Grade I ). Moderate tricuspid regurgitation. Tricuspid systolic velocities suggests peak right ventricular systolic pressure of 63 mmHg, consistent with severe pulmonary hypertension. Trace pulmonic regurgitation . Subjective Cardiovascular: Reports: no symptoms Respiratory: Reports: no symptoms Gastrointestinal/Abdominal: Reports: no symptoms Genitourinary: Reports: no symptoms Subjective COVERAGE FOR [place] Stable on oxygen, awaiting dispo placement Objective Last 24 Hour Vital Signs Date Time Temp Pulse Resp B/P (MAP) Pulse Ox O2 Delivery O2 Flow Rate FiO2 03/01/20 09:00 Nasal Cannula 2.0 03/01/20 08:00 97.5 96 18 110/90 (97) 96 03/01/20 04:00 98.0 81 20 133/67 (89) 98 02/29/20 23:09 97.5 87 20 126/81 (96) 96 02/29/20 21:00 Nasal Cannula 2.0 02/29/20 20:00 97.0 79 20 131/84 (100) 98 02/29/20 19:44 98 Nasal Cannula 4.0 36 02/29/20 16:00 98.5 89 17 123/68 (86) 97 02/29/20 12:00 2.0 40 02/29/20 12:00 97.8 92 20 128/79 (95) 97 02/29/20 12:00 94 General Appearance: no apparent distress, alert EENT: PERRL/EOMI, normal ENT inspection, TMs normal, pharynx normal Neck: non-tender, normal alignment, supple, normal inspection, no JVD Rhythm: NSR Cardiovascular: normal peripheral pulses, normal rate Respiratory/Chest: chest wall non-tender, lungs clear, normal breath sounds Abdomen: normal bowel sounds, non tender, soft, no organomegaly Extremities: normal range of motion, non-tender, normal inspection, no calf tenderness, no swelling 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
--- NOTE | 2020-03-01 10:55 | Cardiology Progress Note ---
Assessment/Plan Status: stable Assessment/Plan ASSESSMENT AND PLAN: 1. Shortness of breath, likely due to the patient's severe COPD as bicarb is 44. ACS negative 2. Shortness of breath due to COPD. He is on Solu-Medrol, ceftriaxone, and albuterol. The patient is also on Lasix 20 mg IV b.i.d. Transition to PO 3. Carbon dioxide of 44. The patient is on BiPAP. CLEAR TO DC FROM CARDIOLOGY Normal left ventricular chamber size, systolic function and wall motion. Left ventricular ejection fraction estimated to be 55-60 %. No evidence of left ventricular hypertrophy. No evidence of pericardial fat or effusion. RV APPEARS ENLARGED All other cardiac chamber sizes are within normal limits. Calcification of aortic valve with adequate cusp excursion, aortic root dialation. Thickened mitral valve leaflets with normal excursion. Mitral annulus and aortic root calcification. Pulmonic valve not well visualized. Normal tricuspid valve structure. IVC dilated at 2.3 cm without physiologic collapse suggestive of increased RA pressure,RAP estimated 20mmHg. A color flow and spectral Doppler study was performed and revealed: Mild aortic insufficiency. Mild mitral regurgitation. Mitral diastolic velocities suggest reduced left ventricular relaxation c/w mild LV diastolic dysfunction (Grade I ). Moderate tricuspid regurgitation. Tricuspid systolic velocities suggests peak right ventricular systolic pressure of 63 mmHg, consistent with severe pulmonary hypertension. Trace pulmonic regurgitation . Subjective Cardiovascular: Reports: no symptoms Respiratory: Reports: no symptoms Gastrointestinal/Abdominal: Reports: no symptoms Genitourinary: Reports: no symptoms Subjective C[employer] Stable on oxygen, awaiting dispo placement Objective Last 24 Hour Vital Signs Date Time Temp Pulse Resp B/P (MAP) Pulse Ox O2 Delivery O2 Flow Rate FiO2 03/01/20 09:00 Nasal Cannula 2.0 03/01/20 08:00 97.5 96 18 110/90 (97) 96 03/01/20 04:00 98.0 81 20 133/67 (89) 98 02/29/20 23:09 97.5 87 20 126/81 (96) 96 02/29/20 21:00 Nasal Cannula 2.0 02/29/20 20:00 97.0 79 20 131/84 (100) 98 02/29/20 19:44 98 Nasal Cannula 4.0 36 02/29/20 16:00 98.5 89 17 123/68 (86) 97 02/29/20 12:00 2.0 40 02/29/20 12:00 97.8 92 20 128/79 (95) 97 02/29/20 12:00 94 General Appearance: no apparent distress, alert EENT: PERRL/EOMI, normal ENT inspection, TMs normal, pharynx normal Neck: non-tender, normal alignment, supple, normal inspection Rhythm: NSR Cardiovascular: normal peripheral pulses, normal rate, regular rhythm Respiratory/Chest: chest wall non-tender, lungs clear, normal breath sounds Abdomen: normal bowel sounds, non tender, soft, no organomegaly Extremities: normal range of motion, non-tender, normal inspection, no calf tenderness 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 II-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
--- NOTE | 2020-03-01 11:45 | NUR ---
NURSE NOTES: PT WALKED WITH PHYSICAL THERAPIST. PER PHYSICAL THERAPIST, PT NEEDS TO WALK MORE SLOWLY AND PACE DUE TO SOB/FATIGUE. PT WAS EDUCATED ON PHYSICAL THERAPIST'S RECOMMENDATIONS. PT VERBALIZED UNDERSTANDING.
[2020-03-01 11:48] VITALS: BP 123/90
--- NOTE | 2020-03-01 12:09 | General Progress Note ---
Subjective Allergies: Coded Allergies: No Known Allergies (Unverified , 02/25/20) UNABLE TO ASSESS (Unverified , 12/27/19) Subjective doing ok off bipap on 4 litre oxygen Objective Last 24 Hour Vital Signs Date Time Temp Pulse Resp B/P (MAP) Pulse Ox O2 Delivery O2 Flow Rate FiO2 03/01/20 11:48 97.5 90 18 123/90 (101) 98 03/01/20 09:00 Nasal Cannula 2.0 03/01/20 08:00 97.5 96 18 110/90 (97) 96 03/01/20 04:00 98.0 81 20 133/67 (89) 98 02/29/20 23:09 97.5 87 20 126/81 (96) 96 02/29/20 21:00 Nasal Cannula 2.0 02/29/20 20:00 97.0 79 20 131/84 (100) 98 02/29/20 19:44 98 Nasal Cannula 4.0 36 02/29/20 16:00 98.5 89 17 123/68 (86) 97 Intake and Output 02/29/20 03/01/20 19:00 07:00 Intake Total 800 ml 240 ml Balance 800 ml 240 ml Intake Oral 240 ml Other 800 ml # Voids 3 Laboratory Tests 02/29/20 12:30: Sodium Level 141, Potassium Level 4.1, Chloride Level 93L, Carbon Dioxide Level > 45*H, Blood Urea Nitrogen 23H, Creatinine 0.6, Estimat Glomerular Filtration Rate > 60, Glucose Level 184H, Calcium Level 9.5 Height (Feet): 5 Height (Inches): 10.00 Weight (Pounds): 160 Assessment/Plan Status: stable Assessment/Plan: pt is doing ok decreasing steroids pt/ot transfer to tele charge nurse dc plan to snf/bc Abimael Patel MD Mar 01, 2020 12:09
[2020-03-01] MEDS ORDERED: PREDNISONE10 M2 PO (13:51)
[2020-03-01] MEDS ORDERED: ASPIRIN EC81 MG ORAL (13:52)
[2020-03-01] MEDS ORDERED: VENTOLIN HFA18 GM INH (13:54)
--- NOTE | 2020-03-01 14:55 | NUR ---
NURSE NOTES: RN GAVE REPORT TO RAJAN AT [facility]. RN IN FORMED RAJAN OF BIPAP ORDER AND CONTINUOUS NC 2L O2. PER RAJAN, NEED TO HAVE BIPAP DELIVERED BEFORE PT ARRIVES. PER DIANA (MATHEW), RN TO CALL BERNY AT [facility]. RN SPOKE TO BERNY WHO STATED WE NEED TO FAX OVER DOCUMENTED MEDICAL NEED FOR BIPAP AND TO FAX OVER WITH [employer]. RN FAXED OVER CLINICALS TO AND REQUESTED FOR BERNY TO CALL RN WHEN EVERYTHING IS IN ORDER. RN INCLUDED CALLBACK NUMBER ON FAX. BERNY VERBALIZED UNDERSTANDING. CRN MADE AWARE. DIANA TO SET UP AMBULANCE TRANSPORTATION WHEN BIPAP IS CONFIRMED TO BE DELIVERED.
[2020-03-01 16:00] VITALS: BP 127/95
--- NOTE | 2020-03-01 16:22 | NUR ---
NURSE NOTES: RN SPOKE TO BERNY, WHO VERBALLY CONFIRMED RECEIPT OF FAX. PER BERNY, HER [place] [place] AND APPROXIMATES BIPAP DELIVERY IN ONE AND A HALF HOURS (APPROX 6:00PM). RN SPOKE TO RAJAN WHO STATES THEY NEED TO HAVE THE BIPAP PHYSICALLY PRESENT AT FACILITY BEFORE THEY CAN ACCEPT THE PT. PER RAJAN, SHE WILL CALL US BACK WHEN THEY RECEIVE THE BIPAP. RN MADE DIANA MORALES) AWARE AND SHE WILL SET UP AMBULANCE TRANSPORTATION FOR 2000HRS AND NURSES CAN PLACE AMBULANCE ON WILL-CALL IF DELIVERY OF BIPAP IS LATE. CRN MADE AWARE.
--- NOTE | 2020-03-01 16:38 | NUR ---
*-*DISCHARGE PLANNED*-* PATIENT HAS BEEN ACCEPTED AND WILL BE DISCHARGE TO: [facility] P: [phone] FOR NURSE TO NURSE REPORT ROOM# 101.[facility] SET FOR 8:20PM S/W [place] [id number].
--- NOTE | 2020-03-01 18:00 | NUR ---
NURSE NOTES: PER CRN, [facility] CALLED [facility] FOR PT TRANSPORTATION DUE TO PT BEING [facility]. HEART TRANSPORT TO [facility] PT AT 2030HRS. RN WILL ENDORSE.
--- NOTE | 2020-03-01 19:00 | NUR ---
NURSE NOTES: RN RECEIVED CALL FROM NKECHI AT [facility], AND CONFIRMED THEY HAVE RECEIVED BIPAP MACHINE. RN MADE NKECHI AWARE PT WILL BE PICKED UP AT 2030HRS. RN WILL ENDORSE.
--- NOTE | 2020-03-01 19:02 | NUR ---
NURSE HAND-OFF: Important Events on Shift: PT TO BE DISCHARGED TO [facility] TONIGHT AT 2000 HRS. PT AGREES TO DISCHARGE. HEART TRANSPORT TO [facility] PT AT 2030HRS. AWAITING CALL FROM [facility] TO RECEIVE CONFIRMATION OF RECEIVING BIPAP IN ORDER TO SEND PT. Patient Status: STABLE Diet: REGULAR Pending Orders: DISCHARGE TO [facility]. Pending Results/Labs:N/A Pending MD notification:N/A Latest Vital Signs: Temperature 98.1 , Pulse 101 , B/P 127 /95 , Respiratory Rate 20 , O2 SAT 96 , Nasal Cannula, O2 Flow Rate 2.0 . Vital Sign Comment: STABLE Latest [place] Fall Score: 60 Fall Risk: High Risk Safety Measures: Call light Within Reach, Bed Alarm Zone 1, Side Rails Side Rails x2, Bed position Low and Locked. Fall Precautions: Yellow Socks Yellow Gown Door Sign Patient Fall Education Addendum: 03/01/20 at 1934 by DRAKE HASKINS RN RN HAND-OFF: Report given to LIDIA FRANCISCO RN.
--- NOTE | 2020-03-01 19:20 | NUR ---
NURSE NOTES: Patient alert, awake, and oriented x4, breathing unlabored on 2L O2 via nasal cannula. Patient speaks Maltese. Denies discomfort or pain at this time. Intravenous access intact on left hand. Patient currently sitting on a chair. Due to high ramirez level, reinforced patient safety. Patient verbalized understanding. Bed is placed at the lowest level with siderails up x 2 and brakes on. Call light within reach. Encouraged patient to use the call light. Will continue to monitor frequently.
[2020-03-01 20:00] VITALS: BP 138/87
--- NOTE | 2020-03-01 20:40 | NUR ---
NURSE NOTES: Heart transport arrived. Given report. Belongings confirmed. Skin intact. Intravenous access removed. ID removed. Medical packet given to transporters. Patient able to ambulate on to [facility] with staff supervision. No adverse events. Patient discharged to [facility] in stable condition.
--- NOTE | 2020-03-03 08:49 | Discharge Summary ---
Discharge Summary Discharge Summary _ DATE OF ADMISSION: 02/26/2020 DATE OF DISCHARGE: 03/01/2020 DISCHARGED BY: Dr. Patel REASON FOR ADMISSION: 59 years old male with past medical history of hypertension, COPD, presented to ED with difficulty breathing for one day. He denied fever and chills. Upon evaluation patient blood pressure was elevated 172/115 and patient was slightly tachycardic. Patient was placed on oxygen via nasal cannula. Pulse oximetry was stable on 3 L of oxygen via nasal cannula/ Laboratory work-up revealed mild anemia with hemoglobin 11.5 hematocrit 25.9. No leukocytosis. Chemistry showed potassium 3.3. CO2 44. Stable renal parameters and LFT. Glucose 139. Lactic acid 1.0. Troponin negative. EKG revealed sinus rhythm , no acute ischemic changes. Rapid COVID-19 test was negative. Chest x-ray demonstrated nonspecific hyperinflation , probably COPD . ABG on 3 L of oxygen reveal evidence of acute respiratory acidosis with pH 7.187, PCO2 125, bicarb 46 and O2 sat 88%. Patient subsequently was placed on the BiPAP and admitted for further management. CONSULTANTS: antique jewelry repairer dr. Del Cid [facility] COURSE: Patient admitted to monitored floor. Patient was on the BiPAP. Patient started on nebulizing treatment with bronchodilators. Patient was followed -up with ABGs. Patient started on IV steroids and empiric antibiotic. Blood cultures were negative. Potassium was replaced. Echocardiogram demonstrated preserved ejection fraction 55 to 60%. No evidence of left ventricular hypertrophy. No evidence of wall motion abnormality. RV appeared to be enlarged. Mild mitral and aortic regurgitation and aortic insufficiency noted. Right ventricular systolic pressure of 63 consistent with severe pulmonary hypertension. Serial troponin were negative . EKG revealed no acute ischemic changes. Patient was ruled out for acute myocardial infarction. Patient started on diuretics with Lasix IV . Volumes were closely monitored along with renal parameters . Patient was transitioned to oral diuretic prior to discharge. Potassium was replaced. Per antique jewelry repairer, shortness of breath was due to acute COPD exacerbation. As patient clinically improved, steroids were tapered and changed to oral Prednisone to complete the treatment course as outpatient. Patient was able to be weaned from BiPAP to oxygen via nasal cannula. Fall precautions maintained. Patient was working with physical therapist. Patient clinically stabilized and was ready for discharge . [facility]. Patient was stable for discharge. FINAL DIAGNOSES: Acute COPD exacerbation Hypertension History of CHF Metabolic encephalopathy likely secondary to COPD Severe pulmonary hypertension DISCHARGE MEDICATIONS: See Medication Reconciliation list. DISCHARGE INSTRUCTIONS: [facility]. Follow up with medical doctor at the facility. Stay 1 years old male I have been assigned to dictate discharge summary for this account. I was not involved in the patient's management. Nancy Caal NP Mar 03, 2020 08:49
== END 2020-03-01 20:40 | DRG 140 ==
LOC: EDBD 15:46 → EMR 15:58 → 2W 19:45 → EDBEDREQ 21:00 → 2E 02-27 17:55 → 4E 02-29 15:00
PROC: 5A09357 Assistance with Respiratory Ventilation, Less than 24 Consecutive Hours, Continuous Positive Airway Pressure (ICD-10-PCS; principal; 2020-02-25)
DX: J44.1 Chronic obstructive pulmonary disease with (acute) exacerbation (principal); G93.41 Metabolic encephalopathy; I11.0 Hypertensive heart disease with heart failure; I50.9 Heart failure, unspecified; I27.20 Pulmonary hypertension, unspecified; I34.0 Nonrheumatic mitral (valve) insufficiency; I35.1 Nonrheumatic aortic (valve) insufficiency; I36.1 Nonrheumatic tricuspid (valve) insufficiency
CPT/HCPCS: 36415; 71045; 80048; 80053; 81003; 82550; 82553; 82803; 83605; 83690; 83735; 83880; 84100; 84443; 84484; 85025; 85610; 85730; 86850; 86900; 86901; 87040; 93005; 93306; 94640; 94660; 96374; 99285; J7620; J8499; U0002